=== PATIENT | female | born 2000 | race Caucasian/White ===

== ENCOUNTER 2022-01-04 09:29 | Outpatient (REF) | payer OTHER, SELFPAY ==
[2022-01-04 11:09] LABS: Hematocrit 37.5 % (37.0-47.0); Mean Corpuscular Hemoglobin 24.9 pg (27.0-33.0); Mean Platelet Volume 11.9 fL (9.4-12.3); Platelet Count 198 X10*3/uL (160-400); Red Blood Count 4.81 X10*6/uL (4.20-5.50); Red Cell Distribution Width 13.7 % (11.0-16.0); White Blood Count 4.8 X10*3/uL (4.8-10.8)
[2022-01-04 11:40] LABS: Alanine Aminotransferase 11 U/L (0-31); Albumin Level 4.4 g/dL (3.5-5.0); Alkaline Phosphatase 87 U/L (39-117); Anion Gap 16 (12-20); Aspartate Amino Transferase 17 U/L (5-31); Bilirubin Total 0.7 mg/dL (0.0-1.0); Blood Urea Nitrogen 10 mg/dL (9-16); Calcium 9.3 mg/dL (8.4-10.2); Carbon Dioxide 24 mmol/L (22-29); Chloride 102 mmol/L (96-108); Cholesterol 117 mg/dL; Estimated Glomerular Filt Rate > 60; Glucose Random 80 mg/dL (60-115); HDL Cholesterol 65 mg/dL; LDL Cholesterol Calculated 46 mg/dl; Potassium 4.1 mmol/L (3.3-5.1); Sodium 138 mmol/L (135-145); Total Protein 7.4 g/dL (6.5-8.0); Triglycerides 34 mg/dL
[2022-01-04 12:04] LABS: TSH reflex Free T4 1.11 uIU/mL (0.32-4.0)
== END 2022-01-04 09:30 | disposition home or self-care (01) ==
LOC: HO.WFDLDS 09:29
PROVIDERS: Visit Provider Hospitalist
DX: Z00.00 Encounter for general adult medical examination without abnormal findings (principal)
CPT/HCPCS: 36415; 80053; 80061; 84443; 85027

== ENCOUNTER 2022-07-10 13:25 | Outpatient (REF) | payer OTHER, SELFPAY ==
[2022-07-10 14:10] LABS: Hematocrit 37.6 % (37.0-47.0); Hemoglobin 11.6 g/dl (12.0-16.0); Mean Corpuscular HGB Conc 30.9 g/dl (31.0-35.0); Mean Corpuscular Hemoglobin 23.9 pg (27.0-33.0); Mean Corpuscular Volume 77.4 fL (80.0-98.0); Mean Platelet Volume 12.2 fL (9.4-12.3); Platelet Count 195 X10*3/uL (160-400); Red Blood Count 4.86 X10*6/uL (4.20-5.50); Red Cell Distribution Width 14.4 % (11.0-16.0); White Blood Count 5.8 X10*3/uL (4.8-10.8)
[2022-07-10 15:06] LABS: Cholesterol 119 mg/dL; HDL Cholesterol 58 mg/dL; Iron 32 mcg/dL (30-160); LDL Cholesterol Calculated 47 mg/dl; Percent Iron Saturation 7 % (15-50); Total Iron Binding Capacity 445 mcg/dL (228-428); Triglycerides 73 mg/dL; Unsaturated Iron Binding 413 ug/dL
[2022-07-10 15:08] LABS: TSH reflex Free T4 1.38 uIU/mL (0.32-4.0)
[2022-07-11 15:29] LABS: Ferritin 6 ng/mL (10-122); HCG Quantitative < 2 mIU/mL
== END 2022-07-10 13:26 | disposition home or self-care (01) ==
LOC: HO.HMGCLDS 13:25
PROVIDERS: PCP Hospitalist; Visit Provider Nurse Practitioner Family
DX: R53.83 Other fatigue (principal)
CPT/HCPCS: 36415; 80061; 82306; 82728; 83540; 84443; 84702; 85027

== ENCOUNTER 2022-10-31 13:51 | Outpatient (AMB) | payer OTHER, SELFPAY ==
[2022-10-31 13:59] VITALS: BP 100/64; PULSE 79; RESP 14; TEMP 36.6; O2SAT 98; BMI 30.2
--- NOTE | 2022-10-31 13:59 | A.OFFPC_ITS ---
Vital Signs 10/31/22 13:59 Height 5 ft 6 in Weight 187 lb BMI 30.2 BP 100/64 Blood Pressure Location Rt brachial Position Sitting Respiration 14 Pulse 79 Pulse Source Pulse Oximeter Temp 97.8 F Temp Source Temporal Artery Scan Pulse Oximetry (%) 98 Oxygen Delivery Method Room Air Intake Visit Reasons: Weight gain, late on menstrual Intake Note: Patient presents with concerns for late menstrual period, negative at home tests, and trouble losing weight. Patient reports a constant state of feeling tired with lack of energy. Radio Division Captain Required: No Accompanied by: Son Allergies diphenhydramine [From Benadryl] Allergy (Severe, Verified 10/31/22 14:19) Swelling Medication List - Last Reconciled 10/31/22 by Madiha Cifuentes CNP cholecalciferol (vitamin D3) 1,250 mcg PO QWEEK 8 weeks ferrous sulfate 325 mg PO DAILY 30 days ondansetron 4 mg PO Q8H PRN Tobacco use date assessed: 10/31/22 Dental Screening Dental Screen Date: 10/31/22 Did you have a dental visit in the last 12 months?: Yes Did you have a dental problem in the last 6 months where you did not have access to dental care?: No Was dental information given to patient?: Patient has dentist HPI HPI Comments History of Present Illness Details 22-year-old female presents with concerns of late menstrual cycle. She notes she has negative home test. She states her menstrual cycle has been late for the past 12 days. She reports difficulty losing weight although she exercises routinely. She also reports continued fatigue and lack of energy and intermittent generalized abdominal pain. She was evaluated for intermittent generalized abdominal pain, low energy, and nausea at her last visit. She states the nausea has resolved. She was diagnosed with iron deficiency anemia and vitamin-D deficiency. She was prescribed ferrous sulfate and vitamin D3 which she notes she has been taking as prescribed. However, she states she has remaining vitamin D3. She denies changes in bowel habits. She is not followed by gynecology. [facility] Medical History Anemia Anxiety Eczema Surgical History History of surgical procedure on eye proper using laser Family History Mother Cervical cancer No family history of mental disorder Anxiety Social History Household Members: Spouse Housing: House Alcohol intake: never Patient Tobacco Use Status: Never used Tobacco e-Cigarette/Vaping Use: Never Used Current occupational status: employed Cognitive needs: No Hearing needs: No Vision needs: No Questionnaire Thrive Questionnaire Date Thrive assessed: 04/23/22 ELVA-7 AMB Questionnaire ELVA-7 Date ELVA - 7 assessed: 04/23/22 Source: Developed by Drs. Matthias Yates, María Elena Ramos, Jase Gonsalez and colleagues, with an educational coleen from [employer]. Review of Systems Const Details: Const Denies chills, Reports fatigue, Denies fever(s), Denies headache(s) and Denies weakness ENT Denies dizziness and Denies headache(s) Card Denies chest pain, Denies lightheadedness, Denies dyspnea and Denies other (Palpitations) Resp Denies cough, Denies dyspnea, Denies wheezing and Denies other ( shortness of breath) GI Reports abdominal pain, Denies melena, Denies hematochezia, Denies change in bowel habits, Denies dyspepsia and Denies nausea Denies hematuria and Denies dysuria Musc Denies abnormal gait, Denies myalgias, Denies arthralgias, Denies numbness and Denies tingling Skin/Breast Denies rash, Denies unusual bruising and Denies wounds Neuro Denies abnormal gait, Denies dizziness, Denies headache(s), Denies memory loss, Denies numbness, Denies Sensory deficit (Neuro), Denies tingling and Denies weakness Psych Denies anxiety, Denies depression, Denies memory loss Endo Denies cold intolerance, Reports fatigue, Denies heat intolerance, Denies flora ydipsia and Denies polyuria Aller/Immun Denies wheezing Physical exam (Primary Care) Vital Signs: Last Vital Signs Temp 97.8 F 10/31/22 13:59 Pulse 79 10/31/22 13:59 Resp 14 10/31/22 13:59 BP 100/64 10/31/22 13:59 Pulse Ox 98 10/31/22 13:59 Oxygen Delivery Method Room Air 10/31/22 13:59 BMI result Body Mass Index 30.2 Tobacco/Smoking Status: Tobacco use Status Tobacco use date assessed 10/31/22 10/31/22 14:12 Patient Tobacco Use Status Never used Tobacco 10/31/22 13:59 e-Cigarette/Vaping Use Never Used 10/31/22 13:59 Thrive Assessment: Date of Thrive Assessment Date Thrive assessed 04/23/22 10/31/22 13:59 Const Other: General: no acute distress and well developed Nutritional Appearance: well nourished Orientation/consciousness: patient oriented x3 HENMT Head: Yes normocephalic and Yes atraumatic Eyes General: appearance normal, both eyes and all related structures Pupils: Equal, round and reactive pupils present EOM: EOMs intact bilaterally Resp Effort & Inspection: normal respiratory effort Auscultation: clear to auscultation bilaterally Cardio Rate: regular rate Rhythm: regular rhythm Heart sounds: S1 normal heart sound present, S2 normal heart sound present, no gallops, no murmurs and no rubs GI Palpation (GI): No Abdominal aortic bruit present, Soft to palpation, tender suprapubic region, No hepatosplenomegaly present and No Rebound tenderness present Auscultation: normal bowel sounds General: Yes no CVA tenderness Back/Spine/Pelvis Back: no CVA tenderness Cervical Spine: cervical ROM normal and No Cervical spine tenderness Thoracic/Lumbar Spine: thoraco-lumbar ROM normal, No pain with thoraco-lumbar ROM, No thoracic spinal tenderness and No lumbar spinal tenderness Extrem General: Yes normal to inspection, No edema and No calf tenderness Skin General: warm and dry. Normal skin color. Normal skin turgor Lesions: no lesions Rashes: no rashes Trauma: no lacerations or abrasions Wounds: no wounds Nails: normal Neuro General: patient oriented x3, gait normal and no focal neuro deficit Cranial nerves: Yes Equal, round and reactive pupils present Cognition (Neuro): normal cognition Gait exam (Neuro): Normal gait present Sensory Exam: No Sensory deficit (Neuro) Psych Appearance: grossly normal Affect: normal affect Attitude: cooperative Thought process: Normal thought process present Assessment and Plan Assessment & Plan (1) Low energy: Code(s): R53.83 - Other fatigue Plan: She reports lack of energy and fatigue Likely due to iron deficiency anemia and vitamin-D deficiency She admits to taking her medications as prescribed. However, she notes she still have some remaining vitamin D3. Vitamin D3 was ordered for 8 weeks and should have been completed. Medication compliance encouraged Labs ordered. Will review results and make changes to her care plan if warranted Follow-up or go to the ED with worsening or new symptoms Verbalized understanding and agreed with the treatment plan. (2) Abdominal pain: Code(s): R10.9 - Unspecified abdominal pain Qualifiers: Abdominal location: generalized Qualified Code(s): R10.84 - Generalized abdominal pain Plan: Reports continued intermittent abdominal pain Suprapubic tenderness to palpation Labs and urinalysis ordered May take Tylenol ibuprofen for pain or discomfort rail transit operator referral made to [facility] [place]-up or go to the ED with worsening or new symptoms Verbalized understanding and agreed with treatment plan. (3) Irregular menstruation: Code(s): N92.6 - Irregular menstruation, unspecified Plan: She states her menstrual cycle has been late for the past 12 days. She has had multiple negative home test. Labs, including HCG quantitative test ordered Referred to pellet mill operator Follow-up or go to the ED with new or worsening symptoms Verbalized understanding and agreed with the plan. (4) Obesity (BMI 30.0-34.9): Code(s): E66.9 - Obesity, unspecified Plan: She reports difficulty losing weight although she exercises routinely. She lost 25 lbs since her last visit. Her BMI is 30.2 from 34.2. Healthy diet and routine exercise encouraged Follow-up with concerns Verbalized understanding and agreed with the plan. Orders: Orders Vitamin D 25-OH Total Today R53.83 - Other fatigue Complete Blood Count Auto Diff Today N92.6 - Irregular menstruation, unspecified, R10.9 - Unspecified abdominal pain, R53.83 - Other fatigue HCG Quantitative Today N92.6 - Irregular menstruation, unspecified Comprehensive Met. Panel Today N92.6 - Irregular menstruation, unspecified, R10.9 - Unspecified abdominal pain, R53.83 - Other fatigue Ferritin Today R53.83 - Other fatigue IRON PROFILE Today R53.83 - Other fatigue UA CC w/rflx Micro + Cult Today R10.9 - Unspecified abdominal pain Referrals MECHANICAL ENGINEERING OFFICER Referral N92.6 - Irregular menstruation, unspecified, R10.9 - Unspecified abdominal pain Coding Level of Care Code Tele Est Pt Level 4 (28838) Diagnoses Low energy R53.83 Abdominal pain R10.84 Abdominal location: generalized Irregular menstruation N92.6 Obesity (BMI 30.0-34.9) E66.9 Time Spent (min) 35
== END 2022-10-31 14:41 | disposition home or self-care (01) ==
PROVIDERS: PCP Hospitalist; Visit Provider Nurse Practitioner Family
DX: R53.83 Other fatigue (principal); Z68.30 Body mass index [BMI] 30.0-30.9, adult; E66.9 Obesity, unspecified; R10.84 Generalized abdominal pain; N92.6 Irregular menstruation, unspecified
CPT/HCPCS: 99214

== ENCOUNTER 2023-06-18 09:39 | Outpatient (AMB) | payer OTHER, SELFPAY ==
--- NOTE | 2023-06-18 09:42 | MHC.PC.OV ---
Vital Signs 06/18/23 09:54 Height 5 ft 6 in Weight 227 lb 6 oz BMI 36.7 BP 125/76 Blood Pressure Location Rt brachial Position Sitting Respiration 14 Pulse 69 Pulse Source Pulse Oximeter Temp 97.9 F Temp Source Temporal Artery Scan Pulse Oximetry (%) 98 Oxygen Delivery Method Room Air Intake Visit Reasons: DEAN from [facility] Intake Note: Chest pain and weight gain Is last menstrual period known: Yes Allergies diphenhydramine [From Benadryl] Allergy (Severe, Verified 06/18/23 10:02) Swelling Medication List - Last Reconciled 06/18/23 by Alison Lin, MUSIC SUPERVISOR- clindamycin phosphate 1% 1 appl topical BEDTIME spironolactone 25 mg PO DAILY Tobacco use date assessed: 06/18/23 Dental Screening Dental Screen Date: 06/18/23 Did you have a dental visit in the last 12 months?: Yes Did you have a dental problem in the last 6 months where you did not have access to dental care?: No Was dental information given to patient?: Patient has dentist HPI HPI Comments History of Present Illness Details 22-year-old female with anxiety, anemia, eczema, obesity Family history Health maintenance Vaccines declined flu, likely up to date 2020 Pap smear [facility] Wants to talk about her weight. Has been able to lose weight prior to have her son. Having chest pain which she relates to anxiety. Occurs when she is overwhelmed. Not currently active w counselor. Was on vistaril in the past; made her tired; used mainly at HS with + effect. c/o chronic neck pain from playing bball. PT in past + effect, would like new referral [facility] Medical History Anemia Anxiety Eczema Surgical History History of surgical procedure on eye proper using laser Family History Mother Cervical cancer No family history of mental disorder Anxiety Social History (Updated 06/18/23 @ 09:53 by Rita Montoya CMA) Household Members: Spouse Housing: House Alcohol intake: never Patient Tobacco Use Status: Never used Tobacco e-Cigarette/Vaping Use: Never Used Use of substances other than those prescribed or required for medical reasons: No Current occupational status: employed Cognitive needs: No Hearing needs: No Vision needs: No Questionnaire PHQ-9 Over the last 2 weeks, how often have you been bothered by any of the following problems? 1. Little interest or pleasure in doing things: not at all 2. Feeling down, depressed, or hopeless: several days 3. Trouble falling or staying asleep, or sleeping too much: more than half the days 4. Feeling tired or having little energy: nearly every day 5. Poor appetite or overeating: not at all 6. Feeling bad about yourself - or that you are a failure or have let yourself or your family down: not at all 7. Trouble concentrating on things, such as reading the newspaper or watching television: not at all 8. Moving or speaking so slowly that other people could have noticed. Or the opposite - being so fidgety or restless that you have been moving around a lot more than usual: not at all 9. Thoughts that you would be better off or of hurting yourself in some way: not at all Total score: 6 Depression Screening Interpretation: Positive Depression Screening Follow-up: Existing condition and Community Mental Health Worker F/U Depression Screening Done: Yes 76434 - PHQ-9 Billing: Yes Source: Developed by Drs. Matthias Yates, María Elena Ramos, Jase Gonsalez and colleagues, with an educational coleen from [employer]. Thrive Questionnaire Date Thrive assessed: 04/23/22 I am a: Patient What is your living situation today?: I have a steady place to live Within the past 12 months, did the food you bought not last and you didn't have the money to get more?: Never true Within the past 12 months, did you worry whether your food would run out before you got money to buy more?: Never true Do you have trouble paying for medicines?: No Do you have trouble getting transportation to medical appointments?: No Do you have trouble paying your heating and electricity bill?: No Do you have trouble with day-to-day activities such as bathing, preparing meals, shopping, managing finances, etc.?: No Are you currently unemployed and looking for a job?: No Are you interested in more education?: No Please select the resources that you would like help with: Childcare Currently or been in a relationship where the following occur: no concerns reported THRIVE Score: 0 AUDIT C Alcohol Use Questionnaire (AUDIT-C) 1. How often do you have a drink containing alcohol?: 2-4 times a month 2. How many drinks containing alcohol do you have on a typical day when you are drinking?: 1 or 2 3. How often do you have six or more drinks on one occasion?: Never Total Score: 2 Score Reviewed/Action Taken: Yes ELVA-7 AMB Questionnaire ELVA-7 Date ELVA - 7 assessed: 04/23/22 Feeling nervous, anxious, or on edge: 0 = Not at all Not being able to stop or control worryin = Not at all Worrying too much about different things: 1 = Several days Trouble relaxin = Several days Being so restless that it is hard to sit still: 0 = Not at all Becoming easily annoyed or irritable: 1 = Several days Feeling afraid as if something awful might happen: 0 = Not at all Total ELVA-7 score (0-4 normal; 5-9 mild; 10-14 moderate; 15-21 severe): 3 Source: Developed by Drs. Matthias Yates, María Elena Ramos, Jase Gonsalez and colleagues, with an educational coleen from [employer]. ELVA-7 Assessment Billing ELVA-7 Assessment Tool: ELVA-7 Assessment 71418 Review of Systems Const All systems reviewed & are unremarkable except as noted in HPI and below Physical exam (Primary Care) Vital Signs: Last Vital Signs Temp 97.9 F 06/18/23 09:54 Pulse 69 06/18/23 09:54 Resp 14 06/18/23 09:54 BP 125/76 06/18/23 09:54 Pulse Ox 98 06/18/23 09:54 Oxygen Delivery Method Room Air 06/18/23 09:54 BMI result Body Mass Index 36.7 Tobacco/Smoking Status: Tobacco use Status Tobacco use date assessed 06/18/23 06/18/23 09:46 Patient Tobacco Use Status Never used Tobacco 06/18/23 09:53 e-Cigarette/Vaping Use Never Used 06/18/23 09:53 PHQ-9: PHQ-9 Score PHQ-9: Total score 6 06/18/23 09:51 Depression Screening Interpretation: Positive Depression Screening Follow-up: Existing condition and Community Mental Health Worker F/U Thrive Assessment: Date of Thrive Assessment Date Thrive assessed 04/23/22 06/18/23 09:46 Currently or been in a relationship where the following occur: no concerns reported Const Other: awake alert NAD accompanied by 2 y/o son Tommy Wearing glasses RRR LS CTAB Mood and affect appropriate Assessment and Plan Assessment & Plan (1) Severe obesity (BMI 35.0-39.9) with comorbidity: Code(s): E66.01 - Morbid (severe) obesity due to excess calories (2) ELVA (generalized anxiety disorder): Code(s): F41.1 - Generalized anxiety disorder (3) Vitamin D deficiency: Code(s): E55.9 - Vitamin D deficiency, unspecified (4) Neck pain: Comment: refer to PT Code(s): M54.2 - Cervicalgia Plan check labs and RTO next week to discuss findings discuss starting meds to help w/ wt loss and anxiety >> rec Wellbutrin as long as labs WNL Total time spent caring for the patient today was 50 minutes. This includes time spent before the visit reviewing the chart, time spent during the visit, and time spent after the visit on documentation This note is constructed using voice recognition software. While every effort has been made to ensure accuracy in electric motors salesperson, still errors may have been included Sometimes, these errors may affect the content or meaning of the given sentence . Orders: Orders Comprehensive [place]. Panel Fast Today E55.9 - Vitamin D deficiency, unspecified, E66.01 - Morbid (severe) obesity due to excess calories, F41.1 - Generalized anxiety disorder TSH reflex Free T4 Today E55.9 - Vitamin D deficiency, unspecified, E66.01 - Morbid (severe) obesity due to excess calories, F41.1 - Generalized anxiety disorder Lipid Panel Today E55.9 - Vitamin D deficiency, unspecified, E66.01 - Morbid (severe) obesity due to excess calories, F41.1 - Generalized anxiety disorder Complete Blood Count no Diff Today E55.9 - Vitamin D deficiency, unspecified, E66.01 - Morbid (severe) obesity due to excess calories, F41.1 - Generalized anxiety disorder Vitamin B12 and Folate Today E55.9 - Vitamin D deficiency, unspecified, E66.01 - Morbid (severe) obesity due to excess calories, F41.1 - Generalized anxiety disorder PT Evaluation and Treatment Today M54.2 - Cervicalgia Microalbumin, Random (w Creat) Today E55.9 - Vitamin D deficiency, unspecified, E66.01 - Morbid (severe) obesity due to excess calories, F41.1 - Generalized anxiety disorder IRON PROFILE Today E55.9 - Vitamin D deficiency, unspecified, E66.01 - Morbid (severe) obesity due to excess calories, F41.1 - Generalized anxiety disorder Referrals Counseling Referral F41.1 - Generalized anxiety disorder Review Flu Vaccine not done: patient reason Coding Level of Care Code Est Pt Level 5 (84754) Diagnoses Severe obesity (BMI 35.0-39.9) with comorbidity E66.01 ELVA (generalized anxiety disorder) F41.1 Vitamin D deficiency E55.9 Neck pain M54.2 Additional Codes ELVA-7 Assessment Billing - ELVA-7 Assessment Tool: ELVA-7 Assessment [id number] ([id number])
[2023-06-18 09:54] VITALS: BP 125/76; PULSE 69; RESP 14; TEMP 36.6; O2SAT 98; BMI 36.7
== END 2023-06-18 11:17 | disposition home or self-care (01) ==
PROVIDERS: PCP Hospitalist; Visit Provider Nurse Practitioner Family
DX: M54.2 Cervicalgia (principal); E66.01 Morbid (severe) obesity due to excess calories; Z68.36 Body mass index [BMI] 36.0-36.9, adult; F41.1 Generalized anxiety disorder; E55.9 Vitamin D deficiency, unspecified
CPT/HCPCS: 99215

== ENCOUNTER 2023-06-18 10:23 | Outpatient (REF) | payer OTHER, SELFPAY ==
[2023-06-18 12:07] LABS: MANUAL DIFF FLAG NO
[2023-06-18 12:14] LABS: Basophils Percent Auto 0.6 % (0-2); Eosinophils Absolute Auto 0.2 X10*3/uL (0.0-0.4); Eosinophils Percent Auto 4.3 % (0-4); Hematocrit 39.9 % (37.0-47.0); Hemoglobin 12.4 g/dl (12.0-16.0); Imm Gran Abs Auto 0.02 X10*3/uL (0.00-0.03); Imm Gran Pct Auto 0.4 % (0.0-0.4); Lymphocytes Absolute Auto 1.3 X10*3/uL (1.2-4.9); Lymphocytes Percent Auto 25.4 % (20-40); Mean Corpuscular HGB Conc 31.1 g/dl (31.0-35.0); Mean Corpuscular Hemoglobin 24.9 pg (27.0-33.0); Mean Corpuscular Volume 80.1 fL (80.0-98.0); Mean Platelet Volume 12.4 fL (9.4-12.3); Monocytes Absolute Auto 0.3 X10*3/uL (0.1-1.2); Monocytes Percent Auto 6.5 % (2-11); Neutrophils Absolute Auto 3.1 x10*3/uL (2.0-8.3); Neutrophils Percent Auto 62.8 % (45-73); Platelet Count 222 X10*3/uL (160-400); Red Blood Count 4.98 X10*6/uL (4.20-5.50); Red Cell Distribution Width 13.2 % (11.0-16.0); White Blood Count 4.9 X10*3/uL (4.8-10.8)
[2023-06-18 12:14] LABS: Appearance Urine Clear; Color Urine Yellow; Glucose Urine UA Negative (Negative); Leukocyte Esterase Urine Negative (Negative); Nitrite Urine Negative (Negative); Specific Gravity - Urine 1.025 (1.005-1.025); UMIC TRIGGER UACC YES; Urine Blood Moderate (2+) (Negative); Urine Ketones Negative (Negative); Urine Protein Negative (Neg-Trace)
[2023-06-18 12:36] LABS: Bacteria Urine Trace (None Seen); Hyaline Casts Urine 0-2 /LPF (0-2); RBC Urine 0-2 /HPF (0-2); WBC Urine 0-5 /HPF (0-5)
[2023-06-18 12:57] LABS: Alanine Aminotransferase 14 U/L (0-31); Albumin Level 4.1 g/dL (3.5-5.0); Alkaline Phosphatase 94 U/L (39-117); Anion Gap 12 (12-20); Aspartate Amino Transferase 15 U/L (5-31); Bilirubin Total 0.4 mg/dL (0.0-1.0); Blood Urea Nitrogen 14 mg/dL (9-16); Calcium 9.2 mg/dL (8.4-10.2); Carbon Dioxide 26 mmol/L (22-29); Chloride 106 mmol/L (96-108); Cholesterol 116 mg/dL (<200); Estimated Glomerular Filt Rate > 60; Glucose Random 105 mg/dL (60-115); HDL Cholesterol 67 mg/dL (>40); Iron 47 mcg/dL (30-160); LDL Cholesterol Calculated 41 mg/dL (<100); Percent Iron Saturation 11 % (15-50); Potassium 4.1 mmol/L (3.3-5.1); Sodium 140 mmol/L (135-145); Total Iron Binding Capacity 417 mcg/dL (228-428); Total Protein 7.5 g/dL (6.5-8.0); Triglycerides 44 mg/dL (<150); Unsaturated Iron Binding 370 ug/dL
[2023-06-18 13:18] LABS: Ferritin 9 ng/mL (10-122); HCG Quantitative < 2 mIU/mL; Vitamin D 25-OH Total 20.6 ng/mL (>30)
[2023-06-18 20:08] LABS: Creatinine Urine 130.93 mg/dL; Microalbum/Creatinine Ratio Ur 7.6 ug/mg cr (<30)
[2023-06-18 20:29] LABS: TSH reflex Free T4 1.06 uIU/mL (0.32-4.0)
== END 2023-06-18 10:24 | disposition home or self-care (01) ==
LOC: HO.WFDLDS 10:23
PROVIDERS: Visit Provider Nurse Practitioner Family
DX: R10.84 Generalized abdominal pain (principal); R53.83 Other fatigue; D50.9 Iron deficiency anemia, unspecified; F41.1 Generalized anxiety disorder; E55.9 Vitamin D deficiency, unspecified; E66.01 Morbid (severe) obesity due to excess calories
CPT/HCPCS: 36415; 80053; 80061; 81001; 81003; 82043; 82306; 82570; 82728; 83540; 84443; 84702; 85025; 85027

== ENCOUNTER 2023-06-28 09:54 | Outpatient (AMB) | payer OTHER, SELFPAY ==
--- NOTE | 2023-06-28 09:57 | A.OFFPC_ITS ---
Intake Visit Reasons: 1 week follow up Allergies diphenhydramine [From Benadryl] Allergy (Severe, Verified 06/18/23 10:02) Swelling Tobacco use date assessed: 06/18/23 Dental Screening Dental Screen Date: 06/18/23 HPI HPI Comments History of Present Illness Details 22-year-old female with iron def anxiety , anemia, eczema, obesity, Vit D Def, Family history Health maintenance Vaccines declined flu, likely up to date 2020 Pap smear [facility] Last from 06/18/2023 show microcytic anemia, iron 11, ferritin 9, unsaturated iron binding 370, normal CMP, normal lipid panel, low vitamin-D 20.6, normal TSH, normal urine , normal UA, normal urine microalbumin creatinine PFSH Medical History Anemia Anxiety Eczema Surgical History History of surgical procedure on eye proper using laser Family History Mother Cervical cancer No family history of mental disorder Anxiety Social History (Updated 06/18/23 @ 09:53 by Rita Montoya [facility]) Household Members: Spouse Housing: House Alcohol intake: never Patient Tobacco Use Status: Never used Tobacco e-Cigarette/Vaping Use: Never Used Current occupational status: employed Cognitive needs: No Hearing needs: No Vision needs: No Questionnaire Thrive Questionnaire Date Thrive assessed: 04/23/22 ELVA-7 AMB Questionnaire ELVA-7 Date ELVA - 7 assessed: 04/23/22 Source: Developed by Drs. Matthias Yates, María Elena Ramos, Jase Gonsalez and colleagues, with an educational coleen from [employer]. Review of Systems Const Reports as per HPI Physical exam (Primary Care) Tobacco/Smoking Status: Tobacco use Status Tobacco use date assessed 06/18/23 06/18/23 09:46 Patient Tobacco Use Status Never used Tobacco 06/18/23 09:53 e-Cigarette/Vaping Use Never Used 06/18/23 09:53 Thrive Assessment: Date of Thrive Assessment Date Thrive assessed 04/23/22 06/18/23 09:46 Const Other: awake alert NAD accompanied by 2 y/o son Isaih Wearing glasses RRR LS CTAB Mood and affect appropriate Assessment and Plan Assessment & Plan (1) ELVA (generalized anxiety disorder): Code(s): F41.1 - Generalized anxiety disorder (2) Severe obesity (BMI 35.0-39.9) with comorbidity: Code(s): E66.01 - Morbid (severe) obesity due to excess calories (3) Vitamin D deficiency: Code(s): E55.9 - Vitamin D deficiency, unspecified (4) Iron deficiency anemia: Code(s): D50.9 - Iron deficiency anemia, unspecified Coding Diagnoses ELVA (generalized anxiety disorder) F41.1 Severe obesity (BMI 35.0-39.9) with comorbidity E66.01 Vitamin D deficiency E55.9 Iron deficiency anemia D50.9
--- NOTE | 2023-06-28 10:01 | A.OFFPC_ITS ---
Vital Signs 06/28/23 10:05 Height 5 ft 6 in BMI Reason not done Patient refused/unable BP 124/63 Blood Pressure Location Lt brachial Position Sitting Respiration 16 Pulse 93 Pulse Source Pulse Oximeter Temp 97.7 F Temp Source Temporal Artery Scan Pulse Oximetry (%) 97 Oxygen Delivery Method Room Air Intake Visit Reasons: 1 week follow up Intake Note: One week follow up Short Story Writer Required: No Allergies diphenhydramine [From Benadryl] Allergy (Severe, Verified 06/28/23 10:12) Swelling Medication List - Last Reconciled 06/28/23 by Alison Lin, GLASS DEPOSITION TENDER- clindamycin phosphate 1% 1 appl topical BEDTIME spironolactone 25 mg PO DAILY Tobacco use date assessed: 06/28/23 Dental Screening Dental Screen Date: 06/28/23 HPI HPI Comments History of Present Illness Details 22-year-old female with iron def anxiety , anemia, eczema, obesity, Vit D Def, Family history Health maintenance Vaccines declined flu, likely up to date 2020 [facility] Here today to fu on labs, ELVA and obesity Last from 06/18/2023 show microcytic anemia, iron 11, ferritin 9, unsaturated iron binding 370, normal CMP, normal lipid panel, low vitamin-D 20.6, normal TSH, normal urine , normal UA, normal urine microalbumin creatinine Has taken Iron in the past w/o side effects. [facility] Medical History Anemia Anxiety Eczema Surgical History History of surgical procedure on eye proper using laser Family History Mother Cervical cancer No family history of mental disorder Anxiety Social History (Updated 06/18/23 @ 09:53 by Rita Montoya CMA) Household Members: Spouse Housing: House Alcohol intake: never Patient Tobacco Use Status: Never used Tobacco e-Cigarette/Vaping Use: Never Used Current occupational status: employed Cognitive needs: No Hearing needs: No Vision needs: No Questionnaire Thrive Questionnaire Date Thrive assessed: 04/23/22 ELVA-7 AMB Questionnaire ELVA-7 Date ELVA - 7 assessed: 04/23/22 Source: Developed by Drs. Matthias Yates, María Elena Ramos, Jase Gonsalez and colleagues, with an educational coleen from [employer]. Physical exam (Primary Care) Vital Signs: Last Vital Signs Temp 97.7 F 06/28/23 10:05 Pulse 93 06/28/23 10:05 Resp 16 06/28/23 10:05 BP 124/63 06/28/23 10:05 Pulse Ox 97 06/28/23 10:05 Oxygen Delivery Method Room Air 06/28/23 10:05 BMI Assessment/Plan discussion: High BMI High, discussed plan: other Tobacco/Smoking Status: Tobacco use Status Tobacco use date assessed 06/28/23 06/28/23 10:08 Patient Tobacco Use Status Never used Tobacco 06/28/23 10:08 e-Cigarette/Vaping Use Never Used 06/28/23 10:08 Thrive Assessment: Date of Thrive Assessment Date Thrive assessed 04/23/22 06/28/23 10:08 Const Other: awake alert NAD accompanied by 2 y/o son Tommy Wearing glasses RRR LS CTAB Mood and affect appropriate Assessment and Plan Assessment & Plan (1) ELVA (generalized anxiety disorder): Comment: Start Wellbutrin XL 150 mg p.o. daily return to office in 6 weeks to follow up on effects Code(s): F41.1 - Generalized anxiety disorder (2) Severe obesity (BMI 35.0-39.9) with comorbidity: Comment: Start Wellbutrin XL 150 mg daily. Advised to weigh self at home tomorrow in a fasting state. Follow up in 6 weeks. Advised that she needs to weigh herself on the day of the phone visit in 6 weeks that we can compare the 2 weights. We will titrate the medication to effect. Code(s): E66.01 - Morbid (severe) obesity due to excess calories (3) Vitamin D deficiency: Comment: Start vitamin-D 3 2000 IU daily. We will repeat labs in September. Code(s): E55.9 - Vitamin D deficiency, unspecified (4) Iron deficiency anemia: Comment: Start ferrous sulfate 325 mg 1 tab p.o. daily. Encouraged to take with 4 oz of citrus juice. If she can not tolerate it due to use okay to add vitamin-C 250 mg to be taken at the same time as the iron tablet. We will repeat labs in September. Code(s): D50.9 - Iron deficiency anemia, unspecified Plan This note is constructed using voice recognition software. While every effort has been made to ensure accuracy in racquet maker, still errors may have been included Sometimes, these errors may affect the content or meaning of the given sentence . Total time spent caring for the patient today was 30 minutes. This includes time spent before the visit reviewing the chart, time spent during the visit, and time spent after the visit on documentation Orders: Orders Complete Blood Count no Diff 09/16/23 D50.9 - Iron deficiency anemia, unspecified, E55.9 - Vitamin D deficiency, unspecified Vitamin D 1,25 dihydroxy 09/16/23 D50.9 - Iron deficiency anemia, unspecified, E55.9 - Vitamin D deficiency, unspecified IRON PROFILE 09/16/23 D50.9 - Iron deficiency anemia, unspecified, E55.9 - Vitamin D deficiency, unspecified Medications: New ferrous sulfate 324 mg PO DAILY 90 tabs 1RF bupropion HCl XL (Wellbutrin XL) 150 mg PO QAM 30 tabs 1RF cholecalciferol (vitamin D3) 50 mcg PO DAILY 90 caps 1RF Coding Level of Care Code Est Pt Level 4 (22273) Diagnoses ELVA (generalized anxiety disorder) F41.1 Severe obesity (BMI 35.0-39.9) with comorbidity E66.01 Vitamin D deficiency E55.9 Iron deficiency anemia D50.9
[2023-06-28 10:05] VITALS: BP 124/63; PULSE 93; RESP 16; TEMP 36.5; O2SAT 97
== END 2023-06-28 10:41 | disposition home or self-care (01) ==
PROVIDERS: PCP Hospitalist; Visit Provider Nurse Practitioner Family
DX: D50.9 Iron deficiency anemia, unspecified (principal); E66.01 Morbid (severe) obesity due to excess calories; F41.1 Generalized anxiety disorder; E55.9 Vitamin D deficiency, unspecified
CPT/HCPCS: 99214

== ENCOUNTER 2023-07-19 15:54 | Outpatient (AMB) | payer OTHER, SELFPAY ==
--- NOTE | 2023-07-19 15:35 | A.OFFPC_ITS ---
Intake Visit Reasons: medication causing side effects Intake Note: Patient reports the Buproprion HCI XL- patient is experiencing increased depression, suicidal thoughts, etc. Patient reports she is safe. Mechanical Car Checker Required: No Accompanied by: Self / Same As Patient Allergies diphenhydramine [From Benadryl] Allergy (Severe, Verified 07/19/23 15:59) Swelling bupropion Adverse Reaction (Severe, Verified 07/19/23 15:59) Depression Medication List - Last Reconciled 07/19/23 by Alison Lin [facility] cholecalciferol (vitamin D3) 50 mcg PO DAILY clindamycin phosphate 1% 1 appl topical BEDTIME ferrous sulfate 324 mg PO DAILY spironolactone 25 mg PO DAILY Tobacco use date assessed: 06/28/23 Dental Screening Dental Screen Date: 06/28/23 HPI HPI Comments History of Present Illness Details Telehealth visit today: She reports that after starting Wellbutrin, she felt terrible. States she felt like she had bipolar as she was having mood swings. Feeling really down, bad thoughts here and there. She reports that this started after taking for 2 weeks. She did not stopped taking the medication as she was hoping that this would help her to lose weight. She denies SI, HI. She continues to be interested in medications that would help both her weight as well as her mood. [facility] Medical History Anemia Anxiety Eczema Surgical History History of surgical procedure on eye proper using laser Family History Mother Cervical cancer No family history of mental disorder Anxiety Social History (Updated 06/18/23 @ 09:53 by Rita Montoya CMA) Household Members: Spouse Housing: House Alcohol intake: never Patient Tobacco Use Status: Never used Tobacco e-Cigarette/Vaping Use: Never Used Current occupational status: employed Cognitive needs: No Hearing needs: No Vision needs: No Questionnaire Thrive Questionnaire Date Thrive assessed: 04/23/22 ELVA-7 AMB Questionnaire ELVA-7 Date ELVA - 7 assessed: 04/23/22 Source: Developed by Drs. Matthias Yates, María Elena B.Jase Everett and colleagues, with an educational coleen from [employer]. Physical exam (Primary Care) Tobacco/Smoking Status: Tobacco use Status Tobacco use date assessed 06/28/23 07/19/23 15:36 Patient Tobacco Use Status Never used Tobacco 07/19/23 15:36 e-Cigarette/Vaping Use Never Used 07/19/23 15:36 Thrive Assessment: Date of Thrive Assessment Date Thrive assessed 04/23/22 07/19/23 15:36 Telehealth Telehealth Telehealth Platform: Telephone Location of provider rendering services: practice address Location of patient: address on file Patient Identification confirmed using: Name, : Yes Telehealth method: voice only Patient verbally consented to treatment: Yes Patient verbally consented to billing insurance company: Yes Patient informed of any privacy concerns related to visit: Yes Minutes spent on Phone/Video with Pt.: 11 Assessment and Plan Assessment & Plan (1) ELVA (generalized anxiety disorder): Comment: Unfortunately she started with side effects after starting Wellbutrin. Side effects include mood swings and depressive mood. Advised to stop immediately and just throw the rest of the medication away. Start escitalopram 10 mg p.o. q.day. Code(s): F41.1 - Generalized anxiety disorder (2) Severe obesity (BMI 35.0-39.9) with comorbidity: Comment: Was not able to tolerate Wellbutrin as she had side effects. Advised to stop immediately. Start Rybelsus 1 tablet p.o. daily. Titrate to effect. Educated about side effects of GI upset. Advised to take 1st thing in the morning on an empty stomach with a sip of water. Nothing to eat or drink for 30 minutes after. Code(s): E66.01 - Morbid (severe) obesity due to excess calories Medications: New escitalopram oxalate 10 mg PO DAILY 30 tabs 1RF semaglutide (Rybelsus) 3 mg PO DAILY 30 days 30 tabs 1RF Patient Instructions: rto as scheduled, sooner if any changes Coding Level of Care Code Tele Est Pt Level 2 (48004) Diagnoses ELVA (generalized anxiety disorder) F41.1 Severe obesity (BMI 35.0-39.9) with comorbidity E66.01
== END 2023-07-19 16:09 | disposition home or self-care (01) ==
LOC: HO.HMGFM 15:54
PROVIDERS: PCP Hospitalist; Visit Provider Nurse Practitioner Family
DX: F41.1 Generalized anxiety disorder (principal); E66.01 Morbid (severe) obesity due to excess calories
CPT/HCPCS: 99212

== ENCOUNTER 2023-09-10 09:10 | Outpatient (AMB) | payer OTHER, SELFPAY ==
--- NOTE | 2023-09-10 09:12 | A.OFFPC_ITS ---
Vital Signs 09/10/23 09:20 Height 5 ft 6 in Weight 230 lb 2 oz BMI 37.1 BP 118/78 Blood Pressure Location Lt brachial Position Sitting Pulse 88 Pulse Source Pulse Oximeter Pulse Oximetry (%) 97 Oxygen Delivery Method Room Air Intake Visit Reasons: med visit Intake Note: patient here for diabetic medication follow up. Onshore Diver Required: No Accompanied by: Child Is last menstrual period known: Yes Last menstrual period: 09/07/23 Post menopausal: No Patient : No Allergies diphenhydramine [From Benadryl] Allergy (Severe, Verified 07/19/23 15:59) Swelling bupropion Adverse Reaction (Severe, Verified 07/19/23 15:59) Depression Tobacco use date assessed: 06/28/23 Dental Screening Dental Screen Date: 06/28/23 Did you have a dental visit in the last 12 months?: Yes Did you have a dental problem in the last 6 months where you did not have access to dental care?: No Was dental information given to patient?: Patient has dentist HPI HPI Comments History of Present Illness Details This is a 23-year-old female with a past medical history of anxiety, obesity, vitamin-D deficiency and iron deficiency anemia presenting for a medication review. This is my 1st time seeing the patient. She is accompanied by her 3-year-old son. Anxiety-she had an adverse reaction to bupropion previously. She was prescribed Lexapro 10 mg at her last visit, but she did not start taking it. She has concerns about weight gain with this type of medication. She thinks she still would benefit from anxiety medication. She is thinking about therapy, but she is not sure she can do it right now with her schedule. She denies depression. She feels like her anxiety is related to her difficulties with her weight, caring for her 3-year-old and working. Obesity-she was prescribed Rybelsus, but she never was able to pick it up from the pharmacy. She says the prior authorization was not done. She also wants to know if she can take 1 of the injectable medications instead. Her recent TSH iss normal. Patient says she has a history of exercise induced asthma. She likes to run and do endurance activities. She does not have an inhaler, but she used to have one. She endorses shortness of breath with vigorous exercise. This is also associated with a feeling of chest tightness and chest pain. She denies syncope or palpitations. She would like an inhaler prescribed. Upon further questioning she says she does get chest pain when she is not exercising. She says this occurs with anxiety. It is described as a mild to moderate tight or painful feeling in the middle of her chest. She is a nonsmoker. She has no family history of heart disease. [facility] Medical History (Updated 09/10/23 @ 09:46 by CATHY Gill) Exercise-induced asthma Eczema Anemia Anxiety Surgical History (Reviewed 10/31/22 @ 14:12 by Beverley Roberts [facility]) History of surgical procedure on eye proper using laser Family History Mother Cervical cancer No family history of mental disorder Anxiety Social History (Updated 06/18/23 @ 09:53 by Rita Montoya [facility]) Household Members: Spouse Housing: House Alcohol intake: never Patient Tobacco Use Status: Never used Tobacco e-Cigarette/Vaping Use: Never Used service: No Current occupational status: employed Current occupation: [employer] Current occupational exposures/hazards: No Cognitive needs: No Hearing needs: No Vision needs: No Female Reproductive History Menstrual Date of last menstrual period: 09/07/23 Questionnaire Thrive Questionnaire Date Thrive assessed: 04/23/22 ELVA-7 AMB Questionnaire ELVA-7 Date ELVA - 7 assessed: 04/23/22 Source: Developed by Drs. Matthias Yates, María Elena Ramos, Jase Gonsalez and colleagues, with an educational coleen from [employer]. Physical exam (Primary Care) Vital Signs: Last Vital Signs Pulse 88 09/10/23 09:20 BP 118/78 09/10/23 09:20 Pulse Ox 97 09/10/23 09:20 Oxygen Delivery Method Room Air 09/10/23 09:20 BMI result Body Mass Index 37.1 Tobacco/Smoking Status: Tobacco use Status Tobacco use date assessed 06/28/23 09/10/23 09:16 Patient Tobacco Use Status Never used Tobacco 09/10/23 09:16 e-Cigarette/Vaping Use Never Used 09/10/23 09:16 Thrive Assessment: Date of Thrive Assessment Date Thrive assessed 04/23/22 09/10/23 09:16 Const Other: Constitutional: Alert, in no distress. Neck: Supple, Full range of motion. No lymphadenopathy. Respiratory: Clear to auscultation. Cardiovascular: S1 S2 regular. No murmurs. Extremities: Warm and well perfused. No clubbing, cyanosis or edema. Psychiatric: Normal mood and affect Office Procedures EKG Details: EKG does not show acute ischemia or arrhythmia. Reviewed with precepting physician. [id number], Complete Assessment and Plan Assessment & Plan (1) Anxiety: Code(s): F41.9 - Anxiety disorder, unspecified Plan: I recommended counseling. She will think about this. She is concerned about taking an anxiety medication that could result in weight gain. Trial of buspirone 5 mg twice daily agreed upon. Black box warning reviewed. (2) Chest pain: Code(s): R07.9 - Chest pain, unspecified Qualifiers: Chest pain type: other chest pain Qualified Code(s): R07.89 - Other chest pain Plan: EKG does not show acute ischemic changes. No evidence of arrhythmia. No symptoms at present. Proceed with echocardiogram and exercise stress test though this may be due to anxiety and asthma.. (3) Exercise-induced asthma: Code(s): J45.990 - Exercise induced bronchospasm Plan: Working on weight loss which can improve asthma symptoms. Prescribed albuterol 2 puffs every 4 hours as needed for coughing, wheezing and shortness of breath and 15 minutes prior to vigorous exercise. (4) Obesity (BMI 30-39.9): Code(s): E66.9 - Obesity, unspecified Plan: Previous TSH normal. Continue lifestyle modifications. Submitted Zepbound to pharmacy. The patient denies contraindications to GLP-1 receptor agonist. We reviewed the FDA preliminary evaluation that has not found evidence that these medications cause suicidal thoughts or actions, but the investigation is ongoing. If the patient develops these symptoms they will stop taking the medication immediately and contact the office. We reviewed more common side effects such as bloating, constipation, nausea and vomiting. We reviewed the administration and dosing schedule. The patient is instructed to continue lifestyle modifications and efforts at weight loss. We discussed how weight loss can cause physiologic changes in the body and that some patients may experience hair thinning/hair loss. We also discussed that the medications are frequently backordered which may result in a delayed start or disruption when taking the medication. The patient understands it is their responsibility to contact alternative pharmacies if the medication is not available at their usual pharmacy. The patient is also made aware that insurance may deny coverage for the medication despite prior authorization. Orders: Orders CA stress test Today R07.89 - Other chest pain AMB EKG-In Office Today R07.9 - Chest pain, unspecified CA echo transthoracic complete Today R07.89 - Other chest pain Medications: New buspirone 5 mg PO BID 60 tabs 3RF tirzepatide (weight loss) (Zepbound) 2.5 mg (0.5 mL) subcut QWEEK 4 weeks 2 mL 0RF albuterol sulfate 90 mcg/actuation 2 puffs inhalation Q4-6H PRN 8.5 grams 0RF shortness of breath, cough or wheezing Discontinued escitalopram oxalate Discontinued Reason: No Longer Medically Relevant 10 mg PO DAILY 30 tabs 1RF semaglutide (Rybelsus) Discontinued Reason: Patient no longer taking 3 mg PO DAILY 30 days 30 tabs 1RF Coding Level of Care Code Est Pt Level 4 (57782) Complex EM visit Add On G2211 Diagnoses Anxiety F41.9 Other chest pain R07.89 Chest pain type: other chest pain Exercise-induced asthma J45.990 Obesity (BMI 30-39.9) E66.9 CPT Codes EKG - CPT: 00279-[id number], Complete ([id number])
[2023-09-10 09:20] VITALS: BP 118/78; PULSE 88; O2SAT 97; BMI 37.1
== END 2023-09-10 10:02 | disposition home or self-care (01) ==
PROVIDERS: PCP Physician Assistant Medical; Visit Provider Physician Assistant Medical
DX: R07.89 Other chest pain (principal); F41.9 Anxiety disorder, unspecified; E66.9 Obesity, unspecified; Z68.37 Body mass index [BMI] 37.0-37.9, adult; J45.990 Exercise induced bronchospasm
CPT/HCPCS: 93000; 99214; G2211

== ENCOUNTER → 2023-10-10 08:02 | Outpatient (REF) | payer OTHER, SELFPAY ==
--- NOTE | 2023-10-10 08:16 | CA_ITS ---
Transthoracic Echocardiogram Patient (Last, First, Middle): Laila Arvizu, Gender: Female Date of : 2000 Age: 23 Procedure Date: 10/10/2023 Procedure Type: Transthoracic Echocardiogram Location: OP Height: 170.18 cm Weight: 90.72 kg BSA: 2.02 m2 Heart Rate: bpm BP: 116 / 80 mmHg Employment Training Specialist: MARLI Referring MD: Prisca MORGAN Facility Maintenance Supervisor: Roderick Tran MD Symptoms: R07.89 - Other chest pain Study Quality: Adequate ECG Rhythm: Sinus Conclusions: - Essentially normal study Findings Left Ventricle Normal left ventricular size, thickness, and systolic function. The visually estimated ejection fraction is between 60-65%. Spectral Doppler is indicative of a normal filling pattern. Right Ventricle Normal right ventricular cavity size and systolic function. Atria Both atria are normal in size. There is no evidence of interatrial shunt. Aortic Valve The aortic valve structure and function is likely normal. There is no aortic valve stenosis. There is no aortic valve regurgitation. Mitral Valve Normal mitral valve structure and function. There is no mitral valve regurgitation. There is no mitral valve stenosis. Pulmonic Valve The pulmonic valve is likely normal. Tricuspid Valve Normal tricuspid valve structure. There is trace tricuspid valve regurgitation. The right ventricular systolic pressure is normal. The right ventricular systolic pressure is 16 mmHg. Normal right atrial pressure. There is no evidence of pulmonary hypertension. Great Vessels All visible segments of the aorta are normal in size. The pulmonary artery was not well visualized. Venous The inferior vena cava is normal in size and collapses greater than 50% with inspiration. Pericardium/Pleural There is no evidence of pericardial effusion. Prior Study Comparison No prior study available for comparison. Measurements 2D Linear Measurements IVSd: 0.69 0.6-0.9/0.6-1.0 cm LVIDd: 4.35 3.9-5.3/4.2-5.9 cm LVIDd Index: 2.15 2.4-3.2/2.2-3.1 cm/m2 LVIDs: 2.94 2.0-3.6 cm LVPWd: 0.97 0.7-1.1 cm LA Diam: 2.50 2.7-3.8/3.0-4.0 cm LAIDs Index: 1.24 1.5-2.3 cm/m2 LV Mass: 139.48 67-162/88-224 g LV Mass Index: 69.05 43-95/49-115 g/m2 LVOT Diam: 2.10 3.0+(-)1.3 cm 2D Systolic Function EF 4C: 58.80 >55% EF 2C: 62.10 >55% EF BiP: 60.90 >55% Mitral Valve MV Pk E: 0.67 MV PK A: 0.56 MV Decel Time: 232.00 E/A: 1.20 E'Lateral: 12.20 E'Medial: 9.03 E/E' Med: 7.50 E/E' Lat: 5.50 PHT: 68.00 MVA PHT: 3.24 Decel [place]: 2.90 Aortic Valve AoV Pk Fausto: 1.20 AoV Mn Fausto: 0.88 AoV VTI: 0.27 AoV Pk Grad: 6.00 Aov Mn Grad: 3.00 CORDELL Cont.VTI: 2.23 LVOT LVOT Pk Fausto: 0.87 LVOT Mn Fausto: 0.63 LVOT VTI: 0.17 LVOT Pk Grad: 3.00 LVOT Mn Grad: 2.00 LVOT Diam: 2.10 LVOT Area: 3.46 Diastolic Function MV Pk E: 0.67 MV Pk A: 0.56 E/A: 1.20 E'Medial: 9.03 E/E' Med: 7.50 E' Laterial: 12.20 E/E' Lat: 5.50 Right Ventricle TAPSE (mm): 24.90 TVS' Afusto: 11.60 Tricuspid Valve TR Pk Fausto: 1.82 TR Pk Grad: 13.00 RA Press: 3.00 RVSP: 16.00 Great Vessels Aorta Sinus of Valsalva: 2.96 2.0-3.[address] [place]: 2.29 1.7-3.4 cm Ao Asc: 2.80 2.1-3.4 cm Updated in Other Vendor System with Status of Final Roderick Tran MD electronically signed on 10/10/2023 5:54:51 PM with status of Final
== END ==
LOC: HO.CARD 08:02
PROVIDERS: PCP Physician Assistant Medical; Visit Provider Physician Assistant Medical
DX: R07.89 Other chest pain (principal)
CPT/HCPCS: 93306

== ENCOUNTER → 2023-10-10 08:16 | Outpatient (BNV) | payer OTHER, SELFPAY | PROVIDERS: PCP Physician Assistant Medical; Visit Provider Internal Medicine Cardiovascular Disease | DX: R07.89 Other chest pain (principal) | CPT/HCPCS: 93306 ==

== ENCOUNTER 2023-10-11 09:00 | Outpatient (AMB) | payer OTHER, SELFPAY ==
--- NOTE | 2023-10-11 09:07 | MHC.PC.OV ---
Vital Signs 10/11/23 09:09 Height 5 ft 6 in Weight 229 lb 4 oz BMI 37.0 BP 113/60 Blood Pressure Location Rt brachial Position Sitting Pulse 81 Pulse Source Pulse Oximeter Pulse Oximetry (%) 98 Oxygen Delivery Method Room Air Intake Visit Reasons: med visit Intake Note: Follow up Is last menstrual period known: No (started 6 days ago) Allergies diphenhydramine [From Benadryl] Allergy (Severe, Verified 10/11/23 09:08) Swelling bupropion Adverse Reaction (Severe, Verified 10/11/23 09:08) Depression Tobacco use date assessed: 06/28/23 Dental Screening Dental Screen Date: 06/28/23 HPI HPI Comments History of Present Illness Details This is a 23-year-old female with a past medical history of anxiety, obesity, vitamin-D deficiency and iron deficiency anemia presenting for a medication review. She is accompanied by her 3-year-old son. Anxiety-she had an adverse reaction to bupropion previously. She was prescribed Lexapro 10 mg, but she didn't start it due to concerns about weight gain with this type of medication. She is thinking about therapy, but she is not sure she can do it right now with her schedule. She denies depression. She feels like her anxiety is related to her difficulties with her weight, caring for her 3-year-old and working. I prescribed Buspiron 5 mg BID. She admits she isn't taking this as consistently as she should, but when she has taken it she finds it alleviates anxiety, and she wants to continue it. Obesity-she was prescribed Rybelsus, but she never was able to pick it up from the pharmacy. Wegovy was denied. Appeal for Ozempic is pending. She reported a history of exercise induced asthma at her last visit. She likes to run and do endurance activities. She endorses shortness of breath with vigorous exercise. This is also associated with a feeling of chest tightness and chest pain. She denies syncope or palpitations. Upon further questioning she said she does get chest pain when she is not exercising. She says this occurs with anxiety. It is described as a mild to moderate tight or painful feeling in the middle of her chest. She is a nonsmoker. She has no family history of heart disease. Echocardiogram was normal. Exercise stress test is pending. She has woken up with chest pain several times the past few weeks. Sometimes there is burning and sometimes she feels acid reflux. ROS: Constitutional: No unexplained weight loss, fever, chills or night sweats. Eyes: No vision changes, blurry vision. ENT: No hearing loss, sneezing, congestion, runny nose or sore throat. Respiratory: see HPI Cardiovascular: No palpitations or pedal edema. see HPI. Gastrointestinal: No anorexia, nausea, vomiting or diarrhea. No abdominal pain. Neurologic: No headache, dizziness, syncope Psychiatric: No SI/HI. Physical exam: Constitutional: Alert, in no distress. Neck: Supple, Full range of motion. No lymphadenopathy. Respiratory: Clear to auscultation. Cardiovascular: S1 S2 regular. No murmurs. Gastrointestinal: Abdomen soft, non-tender, non-distended. Normal bowel sounds. No palpable masses. Neurologic: No focal neurological deficits. Extremities: Warm and well perfused. No clubbing, cyanosis or edema. Psychiatric: Normal mood and affect [facility] Medical History (Updated 10/11/23 @ 10:07 by CATHY Gill) Chest pain Exercise-induced asthma Eczema Anemia Anxiety Surgical History History of surgical procedure on eye proper using laser Family History Mother Cervical cancer No family history of mental disorder Anxiety Social History (Updated 06/18/23 @ 09:53 by Rita Montoya [facility]) Household Members: Spouse Housing: House Alcohol intake: never Patient Tobacco Use Status: Never used Tobacco e-Cigarette/Vaping Use: Never Used service: No Current occupational status: employed Current occupation: [employer] Current occupational exposures/hazards: No Cognitive needs: No Hearing needs: No Vision needs: No Questionnaire Thrive Questionnaire Date Thrive assessed: 04/23/22 ELVA-7 AMB Questionnaire ELVA-7 Date ELVA - 7 assessed: 04/23/22 Source: Developed by Drs. Matthias Yates, María Elena Ramos, Jase Gonsalez and colleagues, with an educational coleen from [email or web address] Physical exam (Primary Care) Vital Signs: Last Vital Signs Pulse 81 10/11/23 09:09 BP 113/60 10/11/23 09:09 Pulse Ox 98 10/11/23 09:09 Oxygen Delivery Method Room Air 10/11/23 09:09 BMI result Body Mass Index 37.0 Tobacco/Smoking Status: Tobacco use Status Tobacco use date assessed 06/28/23 10/11/23 09:13 Patient Tobacco Use Status Never used Tobacco 10/11/23 09:13 e-Cigarette/Vaping Use Never Used 10/11/23 09:13 Thrive Assessment: Date of Thrive Assessment Date Thrive assessed 04/23/22 10/11/23 09:13 Assessment and Plan Assessment & Plan (1) ELVA (generalized anxiety disorder): Code(s): F41.1 - Generalized anxiety disorder Plan: I recommended therapy again. She will think about it. Continue Buspar 5 mg BID. Encouraged patient to take it consistently. (2) Severe obesity (BMI 35.0-39.9) with comorbidity: Code(s): E66.01 - Morbid (severe) obesity due to excess calories Plan: Prior TSH wnl. Appeal for Ozempic is being processed. Continue lifestyle modifications. (3) Chest pain: Code(s): R07.9 - Chest pain, unspecified Qualifiers: Chest pain type: other chest pain Qualified Code(s): R07.89 - Other chest pain Plan: Differential includes anxiety, asthmatic component, reflux, cardiac etiology (though does not have CP with exertion). Echo normal. Stress test being rescheduled per pt. CXR ordered. Trial of PPI. Pt to send portal message in 2-3 weeks to report benefit or not. Warning signs warranting ER evaluation reviewed. Plan Call to schedule follow up once stress test is rescheduled. Orders: Orders XR chest 2V Today R07.9 - Chest pain, unspecified Medications: New omeprazole 20 mg PO DAILY 30 caps 0RF Coding Level of Care Code Est Pt Level 4 (76380) Complex EM visit Add On G2211 Diagnoses ELVA (generalized anxiety disorder) F41.1 Severe obesity (BMI 35.0-39.9) with comorbidity E66.01 Other chest pain R07.89 Chest pain type: other chest pain
[2023-10-11 09:09] VITALS: BP 113/60; PULSE 81; O2SAT 98; BMI 37.0
== END 2023-10-11 09:42 | disposition home or self-care (01) ==
PROVIDERS: PCP Physician Assistant Medical; Visit Provider Physician Assistant Medical
DX: F41.1 Generalized anxiety disorder (principal); E66.01 Morbid (severe) obesity due to excess calories; R07.89 Other chest pain; Z68.37 Body mass index [BMI] 37.0-37.9, adult
CPT/HCPCS: 99214; G2211

== ENCOUNTER → 2023-12-19 11:49 | Outpatient (BNVA) | payer OTHER, SELFPAY | PROVIDERS: PCP Physician Assistant Medical; Visit Provider Physician Assistant Medical ==

== ENCOUNTER → 2023-12-19 11:49 | Outpatient (AMB) | payer OTHER, SELFPAY ==
--- NOTE | 2023-12-19 11:46 | A.OFFPC_ITS ---
Intake Visit Reasons: follow anxiety/depression/er visit Intake Note: Patient reports she would like to discuss mental health stuff. 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 Anxiety-she had an adverse reaction to bupropion previously. She was prescribed Lexapro 10 mg, but she didn't start it due to concerns about weight gain with this type of medication. I prescribed Buspiron 5 mg BID. She is taking it consistently now and noticed it helps. She is happy about that. She previously did not pursue therapy because of her busy schedule. I received a message from the on-call provider last weekend regarding this patient's mental health. She contacted the office on Saturday evening with anxiety and increase chest pains. She noted she was going through a tough time. She called crisis who had her speak to someone who determined she is not currently at risk and to follow up with her doctor. She was directed to go to the emergency department. She went to [facility]. After she was evaluated she was diagnosed with noncardiac chest pain and was discharged. She got in touch with the [facility]. Breezy brown paged the on-call. She appeared to request that her significant other, who is currently in basic training since early November, be allowed to come home citing anxiety and psychological issues is the main reason. The patient is very thankful that the on-call provider did this because she was able to speak to her partner for 20 minutes on Saturday. Usually she only gets to speak with them for 5 minutes per week. Ultimately it is the truman belcher to make the decision whether or not a partner is recalled because patient is not in immediate danger or critically ill. The patient misses her partner, and wishes he was home, but she also does not want him to come home since he has already done a month, and this is the career he chose. If he comes home it could also cause some additional financial stressors for them. She is trying to move out of her son's father's house. He wants to be with her still so this is creating a lot of tension. Her son is 3 years old. She works. She feels overwhelmed. She is emotionally exhausted. Patient says she has dealt with depression in the past, and she always has a anxiety. No SI or HI. The ER gave her a referral to be N. She went to the office last weekend, and they were going to see her same day, but she had other things to do for her son. She has a card she can call to schedule the appointment or they told her she can just show back up at the office. She is going to do this today or tomorrow. She ended up stopping Ozempic because on top of stress she was just not eating. She lost 10 lb since the beginning of November. She does not feel like her mental health is worsening because of the medication. She feels it is situational. ROS: Cardiovascular: No chest pain presently. Psychiatric: No SI/HI. [facility] Medical History Chest pain Exercise-induced asthma Eczema Anemia Anxiety Surgical History History of surgical procedure on eye proper using laser Family History Mother Cervical cancer No family history of mental disorder Anxiety Social History Household Members: Spouse Housing: House Alcohol intake: never Patient Tobacco Use Status: Never used Tobacco e-Cigarette/Vaping Use: Never Used service: No Current occupational status: employed Current occupation: registered [employer] Current occupational exposures/hazards: No Cognitive needs: No Hearing needs: No Vision needs: No Questionnaire Thrive Questionnaire Date Thrive assessed: 04/23/22 ELVA-7 AMB Questionnaire ELVA-7 Date ELVA - 7 assessed: 04/23/22 Source: Developed by Drs. Matthias Yates, María Elena Ramos, Jase Gonsalez and colleagues, with an educational coleen from [employer] Physical exam (Primary Care) Tobacco/Smoking Status: Tobacco use Status Tobacco use date assessed 06/28/23 12/19/23 11:48 Patient Tobacco Use Status Never used Tobacco 12/19/23 11:48 e-Cigarette/Vaping Use Never Used 12/19/23 11:48 Thrive Assessment: Date of Thrive Assessment Date Thrive assessed 04/23/22 12/19/23 11:48 Telehealth Telehealth Telehealth Platform: Telephone Location of provider rendering services: practice address Location of patient: address on file Patient Identification confirmed using: Name, : Yes Telehealth method: voice only Patient verbally consented to treatment: Yes Patient verbally consented to billing insurance company: Yes Patient informed of any privacy concerns related to visit: Yes Minutes spent on Phone/Video with Pt.: 20 Assessment and Plan Assessment & Plan (1) Anxiety: Code(s): F41.9 - Anxiety disorder, unspecified (2) Symptoms of depression: Code(s): R45.89 - Other symptoms and signs involving emotional state Plan I provided support to the patient and recommended she follow up with N for therapy. She plans to do this today or tomorrow. Increase buspirone 7.5 mg BID. Side effects reviewed. Offered psychiatric outpatient med consult. She declines for now. She will follow up in 2 weeks via telehealth or sooner as needed. Medications: New buspirone 7.5 mg PO BID 30 days 60 tabs 1RF Discontinued buspirone Discontinued Reason: Doctor's Order 5 mg PO BID 60 tabs 3RF Coding Level of Care Code Tele Est Pt Level 3 (67403) Diagnoses Anxiety F41.9 Symptoms of depression R45.89
== END ==
LOC: HO.HMCFM 11:49
PROVIDERS: PCP Physician Assistant Medical; Visit Provider Physician Assistant Medical
DX: F41.9 Anxiety disorder, unspecified (principal); R45.89 Other symptoms and signs involving emotional state

== ENCOUNTER 2023-12-30 13:57 | Outpatient (AMB) | payer OTHER, SELFPAY ==
--- NOTE | 2023-12-30 13:42 | A.OFFPC_ITS ---
Intake Visit Reasons: follow up for anxiety Intake Note: f/u for anxiety Allergies diphenhydramine [From Benadryl] Allergy (Severe, Verified 12/30/23 13:43) Swelling bupropion Adverse Reaction (Severe, Verified 12/30/23 13:43) Depression Tobacco use date assessed: 06/28/23 Dental Screening Dental Screen Date: 06/28/23 HPI HPI Comments History of Present Illness Details This is a 23-year-old female with a past medical history of anxiety, obesity, vitamin-D deficiency and iron deficiency anemia presenting for anxiety/depression. The patient says she is doing okay since our last discussion. She increased buspirone to 7.5 mg twice daily. It helps, but she would like to increase the dose further. No side effects. She is having some difficulty sleep, and she would like to restart a prescription for hydroxyzine. Allergy list says Benadryl causes swelling, but she has taken hydroxyzine in the past with no reactions. It worked well for her. She got in touch with a therapist at [facility]. She has been having phone appointments which works better for her schedule. As you recall, her partner is in basic training right now. The patient works. She has a 3-year-old son. She is currently trying to move out of her son's father's house. ROS: Psychiatric: No SI/HI. PFSH Medical History Chest pain Exercise-induced asthma Eczema Anemia Anxiety Surgical History History of surgical procedure on eye proper using laser Family History Mother Cervical cancer No family history of mental disorder Anxiety Social History Household Members: Spouse Housing: House Alcohol intake: never Patient Tobacco Use Status: Never used Tobacco e-Cigarette/Vaping Use: Never Used service: No Current occupational status: employed Current occupation: registered [employer] Current occupational exposures/hazards: No Cognitive needs: No Hearing needs: No Vision needs: No Questionnaire Thrive Questionnaire Date Thrive assessed: 04/23/22 ELVA-7 AMB Questionnaire ELVA-7 Date ELVA - 7 assessed: 04/23/22 Source: Developed by Drs. Matthias Yates, María Elena Ramos, Jase Gonsalez and colleagues, with an educational coleen from [employer]. Physical exam (Primary Care) Tobacco/Smoking Status: Tobacco use Status Tobacco use date assessed 06/28/23 12/19/23 11:48 Patient Tobacco Use Status Never used Tobacco 12/19/23 11:48 e-Cigarette/Vaping Use Never Used 12/19/23 11:48 Thrive Assessment: Date of Thrive Assessment Date Thrive assessed 04/23/22 12/19/23 11:48 Telehealth Telehealth Telehealth Platform: Telephone Location of provider rendering services: practice address Location of patient: address on file Patient Identification confirmed using: Name, : Yes Telehealth method: voice only Patient verbally consented to treatment: Yes Patient verbally consented to billing insurance company: Yes Patient informed of any privacy concerns related to visit: Yes Minutes spent on Phone/Video with Pt.: 10 Coding Level of Care Code Tele Est Pt Level 3 (91280) Complex EM visit Add On G2211 Diagnoses ELVA (generalized anxiety disorder) F41.1 Assessment & Plan Assessment & Plan (1) ELVA (generalized anxiety disorder): Code(s): F41.1 - Generalized anxiety disorder Category: Medical Plan Increase buspirone to 10 mg twice daily. Side effects and administration reviewed. Prescribed hydroxyzine 25-50 mg at bedtime as needed for sleep. Cautioned about sedation and drowsiness. Do not drive or operate heavy machinery on this medication. Patient is speaking with therapist at [facility]. Follow up in 4 weeks for medication review. Medications: New buspirone 10 mg PO BID 60 tabs 1RF Refilled albuterol sulfate 90 mcg/actuation 2 puffs inhalation Q4-6H PRN 8.5 grams 1RF shortness of breath, cough or wheezing Discontinued buspirone Discontinued Reason: Doctor's Order 7.5 mg PO BID 30 days 60 tabs 1RF
== END 2023-12-30 14:09 | disposition home or self-care (01) ==
LOC: HO.HMCFM 13:57
PROVIDERS: PCP Physician Assistant Medical; Visit Provider Physician Assistant Medical
DX: F41.1 Generalized anxiety disorder (principal)

== ENCOUNTER → 2023-12-30 13:57 | Outpatient (BNVA) | payer OTHER, SELFPAY | PROVIDERS: PCP Physician Assistant Medical; Visit Provider Physician Assistant Medical ==

== ENCOUNTER → 2024-01-27 15:12 | Outpatient (BNVA) | payer OTHER, SELFPAY | PROVIDERS: PCP Physician Assistant Medical; Visit Provider Physician Assistant Medical ==

== ENCOUNTER 2024-08-20 09:18 | Outpatient (AMB) | payer OTHER, SELFPAY ==
--- NOTE | 2024-08-20 09:27 | A.OFFPC_ITS ---
Vital Signs 08/20/24 09:31 Height 5 ft 6 in Weight 230 lb BMI 37.1 BP 110/60 Blood Pressure Location Rt brachial Position Sitting Pulse 83 Pulse Source Pulse Oximeter Pulse Oximetry (%) 98 Oxygen Delivery Method Room Air Intake Visit Reasons: Med Review Intake Note: Laila presents in the office today for a medication review. Allergies diphenhydramine [From Benadryl] Allergy (Severe, Verified 08/20/24 09:28) Swelling bupropion Adverse Reaction (Severe, Verified 08/20/24 09:28) Depression Tobacco use date assessed: 08/20/24 Dental Screening Dental Screen Date: 08/20/24 Did you have a dental visit in the last 12 months?: Yes Did you have a dental problem in the last 6 months where you did not have access to dental care?: No Was dental information given to patient?: Patient has dentist HPI HPI Comments History of Present Illness Details This is a 23-year-old female with a past medical history of dyspnea on exertion, chest pain, asthma, generalized anxiety disorder, obesity, anemia and vitamin-D deficiency presenting to discuss weight loss medication. Obesity-during the past 6 months she is doing intermittent fasting, low- carbohydrate and walking and going to the gym and hiking for exercise. She exercises 30-120 minutes per day. Despite this she has not lost any weight. Her weight is 230 lb today which is the same as August of 2023. Her BMI is 37.1. She started Ozempic last year, but she discontinued it, and now she needs a new authorization for insurance to cover it. She denies side effects on the medication. She drinks no alcohol. She has note contraindications to GLP 1. Patient's last blood sugar was mildly elevated. No A1c on file. Anxiety-patient says she does still struggle with this, but it is stable. Her depression screening is also positive. She is not in therapy right now. She stopped taking Prozac. She takes buspirone sometime and uses hydroxyzine occasionally at night. She is not interested in further treatment or referrals at this time. No SI or HI. Last year she was evaluated for chest pain and dyspnea on exertion. She described the pain as tightness. She had no syncope or palpitations. She also reported having chest pain sometimes when not exercising which generally occurred with anxiety. She is a nonsmoker. She has no family history of heart disease. Cardiac testing was ordered. She completed the echocardiogram in September of 2023 which was essentially normal. A stress test was ordered, but that day she had her son with her so she could not have the testing done. Chest x-ray was ordered, but she never completed it.Albuterol does not always alleviate her symptoms. No leg swelling. No chest pain or shortness of breath today. No history of clots. ROS: Constitutional: No unexplained weight loss, fever, chills or night sweats. Eyes: No vision changes, blurry vision, double vision, eye pain, eye redness, eye discharge. ENT: No hearing loss, sneezing, congestion, runny nose or sore throat. Respiratory: No cough or sputum production. No hemoptysis. Cardiovascular: No syncope, palpitations or pedal edema Gastrointestinal: No anorexia, nausea, vomiting or diarrhea. No abdominal pain or blood in stool. Neurologic: No headache, dizziness, syncope, unilateral weakness, ataxia, numbness or tingling in the extremities. Endocrine: No cold or heat intolerance. No polyuria or polydipsia. Psychiatric: see HPI Physical exam: Constitutional: Alert, in no distress. Eyes: Pupils are equal, round and reactive to light. Extraocular muscles intact. Neck: Supple, Full range of motion. No lymphadenopathy. No palpable thyroid masses. Respiratory: Clear to auscultation. Cardiovascular: S1 S2 regular. No murmurs. Gastrointestinal: Abdomen soft, non-tender, non-distended. Normal bowel sounds. No palpable masses. Neurologic: No focal neurological deficits. Extremities: Warm and well perfused. No clubbing, cyanosis or edema. Intactperipheral pulses bilaterally. Psychiatric: Normal mood and affect [facility] Medical History (Updated 08/21/24 @ 12:47 by CATHY Gill) Anxiety and depression Abnormal EKG LEMUS (dyspnea on exertion) Chest pain Exercise-induced asthma Eczema Anemia Anxiety Surgical History History of surgical procedure on eye proper using laser Family History Mother Cervical cancer No family history of mental disorder Anxiety Social History (Updated 08/20/24 @ 09:30 by Arminda Nazario MA) Household Members: Spouse Housing: House Alcohol intake: never Patient Tobacco Use Status: Never used Tobacco e-Cigarette/Vaping Use: Never Used service: No Current occupational status: employed Current occupation: [employer] Current occupational exposures/hazards: No Cognitive needs: No Hearing needs: No Vision needs: No Questionnaire PHQ-9 Over the last 2 weeks, how often have you been bothered by any of the following problems? 1. Little interest or pleasure in doing things: several days 2. Feeling down, depressed, or hopeless: several days 3. Trouble falling or staying asleep, or sleeping too much: several days 4. Feeling tired or having little energy: nearly every day 5. Poor appetite or overeating: several days 6. Feeling bad about yourself - or that you are a failure or have let yourself or your family down: several days 7. Trouble concentrating on things, such as reading the newspaper or watching television: not at all 8. Moving or speaking so slowly that other people could have noticed. Or the opposite - being so fidgety or restless that you have been moving around a lot more than usual: not at all 9. Thoughts that you would be better off or of hurting yourself in some way: not at all Total score: 8 Depression Screening Interpretation: Positive Depression Screening Done: Yes 43882 - PHQ-9 Billing: Yes Source: Developed by Drs. Matthias Yates, María Elena Ramos, Jase Gonsalez and colleagues, with an educational coleen from [employer]. Thrive Questionnaire Date Thrive assessed: 08/20/24 I am a: Patient What is your living situation today?: I have a place to live, but I am worried about losing it in the future Within the past 12 months, did the food you bought not last and you didn't have the money to get more?: Never true Within the past 12 months, did you worry whether your food would run out before you got money to buy more?: Never true Do you have trouble paying for medicines?: No Do you have trouble getting transportation to medical appointments?: No Do you have trouble paying your heating and electricity bill?: No Do you have trouble taking care of your child, family member or friend?: No Do you have trouble with day-to-day activities such as bathing, preparing meals, shopping, managing finances, etc.?: No Are you currently unemployed and looking for a job?: No Are you interested in more education?: No Please select the resources that you would like help with: Housing/Jail and Daily support Currently or been in a relationship where the following occur: No concerns reported THRIVE Score: 1 AUDIT C Alcohol Use Questionnaire (AUDIT-C) 1. How often do you have a drink containing alcohol?: Monthly or less 2. How many drinks containing alcohol do you have on a typical day when you are drinking?: 1 or 2 3. How often do you have six or more drinks on one occasion?: Never Total Score: 1 ELVA-7 AMB Questionnaire ELVA-7 Date ELVA - 7 assessed: 08/20/24 Feeling nervous, anxious, or on edge: 2 = More than half the days Not being able to stop or control worryin = More than half the days Worrying too much about different things: 2 = More than half the days Trouble relaxin = More than half the days Being so restless that it is hard to sit still: 1 = Several days Becoming easily annoyed or irritable: 3 = Nearly every day Feeling afraid as if something awful might happen: 0 = Not at all Total ELVA-7 score (0-4 normal; 5-9 mild; 10-14 moderate; 15-21 severe): 12 Source: Developed by Drs. Matthias Yates, María Elena Ramos, Jase Gonsalez and colleagues, with an educational coleen from [employer]. ELVA-7 Assessment Billing ELVA-7 Assessment Tool: ELVA-7 Assessment 93833 Physical exam (Primary Care) Vital Signs: Last Vital Signs Pulse 83 08/20/24 09:31 BP 110/60 08/20/24 09:31 Pulse Ox 98 08/20/24 09:31 Oxygen Delivery Method Room Air 08/20/24 09:31 BMI result Body Mass Index 37.1 Tobacco/Smoking Status: Tobacco use Status Tobacco use date assessed 08/20/24 08/20/24 09:34 Patient Tobacco Use Status Never used Tobacco 08/20/24 09:34 e-Cigarette/Vaping Use Never Used 08/20/24 09:34 PHQ-9: PHQ-9 Score PHQ-9: Total score 8 08/20/24 17:48 Depression Screening Interpretation: Positive Thrive Assessment: Date of Thrive Assessment Date Thrive assessed 08/20/24 08/20/24 09:34 Currently or been in a relationship where the following occur: No concerns reported Office Procedures EKG Details: EKG shows normal sinus rhythm, low-voltage QRS, T-wave inversion lead III, nonspecific T-wave abnormality in AVF 50273-[id number], Complete Coding Level of Care Code Est Pt Level 4 (66598) Complex EM visit Add On G2211 Diagnoses Screening for cardiovascular condition Z13.6 Anxiety and depression F41.9; F32.A Abnormal EKG R94.31 LEMUS (dyspnea on exertion) R06.09 Other chest pain R07.89 Chest pain type: other chest pain Exercise-induced asthma J45.990 Severe obesity (BMI 35.0-39.9) with comorbidity E66.01 CPT Codes EKG - CPT: 47551-Xtckemaaphxbsukaz, Complete ([id number]) Additional Codes ELVA-7 Assessment Billing - ELVA-7 Assessment Tool: ELVA-7 Assessment 55615 ([id number]) PHQ-9 - 69418 - PHQ-9 Billing: Yes ([id number]) Assessment & Plan Assessment & Plan (1) Screening for cardiovascular condition: Code(s): Z13.6 - Encounter for screening for cardiovascular disorders (2) Anxiety and depression: Code(s): F41.9 - Anxiety disorder, unspecified; F32.A - Depression, unspecified Category: Medical Plan: Symptoms are uncontrolled. She declines referral to behavioral health. She does not want to take additional medications at this time. We will continue to monitor this. (3) Abnormal EKG: Code(s): R94.31 - Abnormal electrocardiogram [ECG] [EKG] Category: Medical Plan: EKG not consistent with acute ischemia. No anginal symptoms today. Proceed with cardiac stress test. I ordered this again. Refer to cardiology. (4) LEMUS (dyspnea on exertion): Code(s): R06.09 - Other forms of dyspnea Category: Medical Plan: Proceed with stress test. Echocardiogram was normal. Ordered chest x-ray and pulmonary function test. Warning signs warranting ER evaluation reviewed with the patient. We will consider starting ICS based on results. Continue albuterol 2 puffs every 4 hours as needed. She has a history of anemia. Check CBC. (5) Chest pain: Code(s): R07.9 - Chest pain, unspecified Category: Medical Qualifiers: Chest pain type: other chest pain Qualified Code(s): R07.89 - Other chest pain Plan: See above notes regarding EKG and further cardiac workup. Referred to Cardiology. Chest x-ray and PFT ordered. (6) Exercise-induced asthma: Code(s): J45.990 - Exercise induced bronchospasm Category: Medical Plan: See above notes. (7) Severe obesity (BMI 35.0-39.9) with comorbidity: Code(s): E66.01 - Morbid (severe) obesity due to excess calories Category: Medical Plan: Patient denies contraindications to GLP 1. We will restart Ozempic at 0.25 mg weekly. It will require prior authorization. It is medically necessary. She has not been able to lose weight despite lifestyle modifications. Side effects reviewed with the patient. Plan Schedule follow up in 3 months. Orders: Orders Vitamin B12 and Folate 08/20/24 D64.9 - Anemia, unspecified, R73.01 - Impaired fasting glucose, Z13.6 - Encounter for screening for cardiovascular disorders Complete Blood Count Auto Diff 08/20/24 R73.01 - Impaired fasting glucose, Z13.6 - Encounter for screening for cardiovascular disorders Hemoglobin A1c 08/20/24 E11.9 - Type 2 diabetes mellitus without complications, R73.01 - Impaired fasting glucose, Z13.6 - Encounter for screening for cardiovascular disorders Lipid Panel 08/20/24 E78.5 - Hyperlipidemia, unspecified, R73.01 - Impaired fasting glucose, Z13.6 - Encounter for screening for cardiovascular disorders CA stress test 08/20/24 R94.31 - Abnormal electrocardiogram [ECG] [EKG] AMB EKG-In Office 08/20/24 R06.09 - Other forms of dyspnea Vitamin D 25-OH (D2 and D3) 08/20/24 E55.9 - Vitamin D deficiency, unspecified, R73.01 - Impaired fasting glucose, Z13.6 - Encounter for screening for cardiovascular disorders IRON PROFILE 08/20/24 D64.9 - Anemia, unspecified, R73.01 - Impaired fasting glucose, Z13.6 - Encounter for screening for cardiovascular disorders Comprehensive Met. Panel 08/20/24 R73.01 - Impaired fasting glucose, Z13.6 - Encounter for screening for cardiovascular disorders TSH reflex Free T4 08/20/24 R73.01 - Impaired fasting glucose, Z13.6 - Encounter for screening for cardiovascular disorders XR chest 2V 08/20/24 J45.990 - Exercise induced bronchospasm PFT pulmonary function test 08/20/24 R06.09 - Other forms of dyspnea Referrals Cardiology Referral R06.09 - Other forms of dyspnea, R07.89 - Other chest pain, R94.31 - Abnormal electrocardiogram [ECG] [EKG] Medications: Refilled hydroxyzine HCl 25 - 50 mg (1 - 2 x 25 mg) PO BEDTIME 30 days PRN 60 tabs 3RF sleep albuterol sulfate 90 mcg/actuation 2 puffs inhalation Q4-6H PRN 8.5 grams 1RF shortness of breath, cough or wheezing Discontinued fluoxetine Discontinued Reason: Doctor's Order 20 mg PO DAILY 30 days 30 tabs 1RF
[2024-08-20 09:31] VITALS: BP 110/60; PULSE 83; O2SAT 98; BMI 37.1
--- OUTSIDE RECORDS SUMMARY | 2024-08-20 09:42 | XMS_ITS | Clinical Summary ---
Author Organization [facility] ity Address [address] [place] [address] Care Team Providers Care Teacher Music Name Role Phone Unavailable Primary Care Provider Unavailabl e Surgical History Surgery Date Site/Laterality Comments EYE SURGERY Left PROCEDURE: HISTORICAL EYE SURGERY; COMMENT: Correction of strabismus. Medical History Medical History Date Comments Depressive disorder DX:Depressiv e disorder Anxiety state DX:Anxiety state Chronic neck and back pain DX:Ch ronic neck and back pain Insomnia DX:Insomnia Family History Medical History Relation Name Comments No Known Problems Father Cervical cancer Mother Relation Name Status Comments Brother Alive Father Alive Mother Alive Social History Tobacco Use Types Packs/Day Years Used Date Smoking Tobacco: Never Smokeless Tobacco: Never Comments Unknown Sex and Gender Information Value Date Recorded Sex Assigned at Not on file Legal Sex Female 1:55 PM EST Gender Identity Not on file Sexual Orientation Not on file Obstetrics History Plan of Treatment Health Maintenance Due Date Last Done Comments Gonorrhea/Chlamydia Screening 2000 HPV Vaccines (1 - 3-dose series) 09/06/2015 Meningococcal B Vaccine (1 o f 2 - Standard) 2016 DTaP,Tdap,and Td Vaccines (1 - Tdap) 09/06/2019 Hepatitis B Vaccines (1 of 3 - 19+ 3-dose series) 09/06/2019 Cervical Cancer Screening: P ap Smear 2021 Depression Screening 02/21/2022 HIV Screening 02/21/2022 Hepatitis C Screening 02/21/2022 Social Influencers of Health Screening 02/21/2022 COVID-19 Vaccine ( - 2023-2 5 season) 2023 Influenza Vaccine (Season Ended) 2024 HIB Vaccines Aged Out No longer eligi ble based on patient's age to complete this topic Hepatitis A Vaccines Aged Out No long er eligible based on patient's age to complete this topic IPV Vaccines Aged Out No longer eligi ble based on patient's age to complete this topic MMR Vaccines Aged Out No longer eligi ble based on patient's age to complete this topic Meningococcal ACWY Vaccine Aged Out N o longer eligible based on patient's age to complete this topic Pneumococcal Vaccine: Pediat rics (0 to 5 Years) and At-Risk Patients (6 to 64 Years) Aged Out No longer eligible b ased on patient's age to complete this topic RSV Immunization Patients Un yogesh 20 months Aged Out No longer eligible b ased on patient's age to complete this topic Varicella Vaccines Aged Out No longer eligible based on patient's age to complete this topic
== END 2024-08-20 10:21 | disposition home or self-care (01) ==
LOC: HO.HMCFM 09:19
PROVIDERS: PCP Physician Assistant Medical; Visit Provider Physician Assistant Medical
DX: R07.9 Chest pain, unspecified (principal); R06.09 Other forms of dyspnea

== ENCOUNTER → 2024-08-20 09:18 | Outpatient (BNVA) | payer OTHER, SELFPAY | PROVIDERS: PCP Physician Assistant Medical; Visit Provider Physician Assistant Medical | DX: F41.9 Anxiety disorder, unspecified (principal); F32.A Depression, unspecified; R94.31 Abnormal electrocardiogram [ECG] [EKG]; R06.09 Other forms of dyspnea; R07.89 Other chest pain; J45.990 Exercise induced bronchospasm; E66.01 Morbid (severe) obesity due to excess calories; Z68.37 Body mass index [BMI] 37.0-37.9, adult | CPT/HCPCS: 93005; 96127; 99212 ==

== ENCOUNTER 2024-11-26 11:18 | Outpatient (AMB) | payer OTHER, SELFPAY ==
--- NOTE | 2024-11-26 11:21 | A.OFFPC_ITS ---
Vital Signs 11/26/24 11:27 Height 5 ft 6 in Weight 227 lb BMI 36.6 BP 102/68 Blood Pressure Location Rt brachial Position Sitting Respiration 14 Pulse 84 Pulse Source Pulse Oximeter Temp 97.3 F Temp Source Temporal Artery Scan Pulse Oximetry (%) 99 Oxygen Delivery Method Room Air Intake Visit Reasons: physical/med check Intake Note: Laila presents in the office today for her annual physical and medication check in. Allergies diphenhydramine (From Benadryl) Allergy (Severe, Verified 11/26/24 11:24) Swelling bupropion Adverse Reaction (Severe, Verified 11/26/24 11:24) Depression Tobacco use date assessed: 11/26/24 Dental Screening Dental Screen Date: 11/26/24 Did you have a dental visit in the last 12 months?: Yes Did you have a dental problem in the last 6 months where you did not have access to dental care?: No Was dental information given to patient?: Patient has dentist HPI HPI Comments History of Present Illness Details This is a 23-year-old female with a past medical history of dyspnea on exertion, chest pain, asthma, generalized anxiety disorder, obesity, anemia and vitamin-D deficiency presenting to discuss weight loss medication. We previously discussed chest pain and dyspnea on exertion. She described the pain as tightness. She had no syncope or palpitations. She also reported having chest pain sometimes would not exercising which generally occurred with anxiety. She is a nonsmoker and has no family history of heart disease. She completed the echocardiogram in September of 2023 which was essentially normal. A stress test was ordered, but the day she had it she took her son with her so they could not have the testing done. Chest x-ray was never completed. PFT was not completed. Albuterol does not always alleviate her symptoms. She denies leg swelling. Since our last visit she reports chest pain has improved. She feels like it is related to anxiety and asthma. She says this in the context of requesting phentermine which I denied due to ongoing evaluation of symptoms and prior abnormal EKG. I referred her to Cardiology and reordered a stress test, PFT and chest x-ray at the end of July for her. I advised the patient she needs to have these referrals and orders completed. She had an EKG repeated on 08/20/2024 which showed normal sinus rhythm, right axis deviation, low-voltage QRS and nonspecific T-wave abnormality. She is using omeprazole occasionally for acid reflux. She does not take spironolactone consistently. This is prescribed for acne. She is not taking her vitamin-D or iron supplement consistently. She is agreeable to have her lab work completed. She may need an MMR titer for her new job. She will let me know. We discussed there is no record of Tdap vaccine, and she does not recall if she had it with her . She deferred it today. I recommended the seasonal influenza vaccine. She is going to schedule an appointment with Gynecology. ROS: Constitutional: No unexplained weight loss, fever, chills or night sweats. Eyes: No vision changes, blurry vision, double vision, eye pain, eye redness, eye discharge. ENT: No hearing loss, sneezing, congestion, runny nose or sore throat. Respiratory: Endorses shortness of breath as above. No shortness a breath within the past week. Denies cough, hemoptysis and sputum production. Cardiovascular: Denies palpitations, pedal edema. Endorses chest pain as above. No chest pain within the past week. Gastrointestinal: No anorexia, nausea, vomiting or diarrhea. No abdominal pain or blood in stool. She has constipation sometimes. Recommended Benefiber. Genitourinary: No dysuria, hematuria, urinary frequency. Neurologic: No headache, dizziness, syncope, unilateral weakness, ataxia, numbness or tingling in the extremities. Musculoskeletal: No muscle pain, back pain, joint pain or swelling. Hematologic/Lymphatics: No bleeding or bruising. No painful lymph nodes. Skin: No rash Endocrine: No cold or heat intolerance. No polyuria or polydipsia. Psychiatric: No SI/HI. Physical exam: Constitutional: Alert, in no distress. Head: Normocephalic. Eyes: Pupils are equal, round and reactive to light. Extraocular muscles intact. Ear, Nose and Throat: Canals clear. TMs normal. Normal nasal mucosa. No nasal discharge. No oral lesions. Neck: Supple, Full range of motion. No lymphadenopathy. No palpable thyroid masses. Respiratory: Clear to auscultation. Cardiovascular: S1 S2 regular. No murmurs. Gastrointestinal: Abdomen soft, non-tender, non-distended. Normal bowel sounds. No palpable masses. Neurologic: No focal neurological deficits. Symmetric patellar reflexes. Moves all extremities spontaneously. Sensation intact bilaterally. Skin: No rashes or lesions. Musculoskeletal: No gross deformities. Normal range of motion. Extremities: Warm and well perfused. No clubbing, cyanosis or edema. Intact peripheral pulses bilaterally Psychiatric: Normal mood and affect [facility] Medical History (Updated 11/27/24 @ 09:04 by CATHY Gill) Routine physical examination Anxiety and depression Abnormal EKG LEMUS (dyspnea on exertion) Chest pain Exercise-induced asthma Eczema Anemia Anxiety Surgical History History of surgical procedure on eye proper using laser Family History Mother Cervical cancer No family history of mental disorder Anxiety Social History (Updated 11/26/24 @ 11:27 by Arminda Nazario MA) Household Members: Spouse Housing: House Alcohol intake: never Patient Tobacco Use Status: Never used Tobacco e-Cigarette/Vaping Use: Never Used Second Hand Smoke Exposure: No Use of substances other than those prescribed or required for medical reasons: No service: No Current occupational status: employed Current occupation: [employer] Current occupational exposures/hazards: No Cognitive needs: No Hearing needs: No Vision needs: No Questionnaire PHQ-9 Over the last 2 weeks, how often have you been bothered by any of the following problems? 1. Little interest or pleasure in doing things: several days 2. Feeling down, depressed, or hopeless: more than half the days 3. Trouble falling or staying asleep, or sleeping too much: several days 4. Feeling tired or having little energy: more than half the days 5. Poor appetite or overeating: several days 6. Feeling bad about yourself - or that you are a failure or have let yourself or your family down: several days 7. Trouble concentrating on things, such as reading the newspaper or watching television: not at all 8. Moving or speaking so slowly that other people could have noticed. Or the opposite - being so fidgety or restless that you have been moving around a lot more than usual: not at all 9. Thoughts that you would be better off or of hurting yourself in some way: not at all Total score: 8 Depression Screening Interpretation: Positive Depression Screening Follow-up: Existing condition Depression Screening Done: Yes 12441 - PHQ-9 Billing: Yes Source: Developed by Drs. Matthias Yates, María Elena Ramos, Jase Gonsalez and colleagues, with an educational coleen from [employer]. Thrive Questionnaire Date Thrive assessed: 11/26/24 I am a: Patient What is your living situation today?: I have a place to live, but I am worried about losing it in the future Within the past 12 months, did the food you bought not last and you didn't have the money to get more?: Never true Within the past 12 months, did you worry whether your food would run out before you got money to buy more?: Never true Do you have trouble paying for medicines?: No Do you have trouble getting transportation to medical appointments?: No Do you have trouble paying your heating and electricity bill?: No Do you have trouble taking care of your child, family member or friend?: No Do you have trouble with day-to-day activities such as bathing, preparing meals, shopping, managing finances, etc.?: No Are you currently unemployed and looking for a job?: No Are you interested in more education?: No Currently or been in a relationship where the following occur: No concerns reported THRIVE Score: 1 AUDIT C Alcohol Use Questionnaire (AUDIT-C) 1. How often do you have a drink containing alcohol?: Never 3. How often do you have six or more drinks on one occasion?: Never Total Score: 0 ELVA-7 AMB Questionnaire ELVA-7 Date ELVA - 7 assessed: 08/20/24 Feeling nervous, anxious, or on edge: 1 = Several days Not being able to stop or control worryin = More than half the days Worrying too much about different things: 2 = More than half the days Trouble relaxin = Nearly every day Being so restless that it is hard to sit still: 0 = Not at all Becoming easily annoyed or irritable: 1 = Several days Feeling afraid as if something awful might happen: 0 = Not at all Total ELVA-7 score (0-4 normal; 5-9 mild; 10-14 moderate; 15-21 severe): 9 Source: Developed by Drs. Matthias Yates, Jase Aragonoenke and colleagues, with an educational coleen from [employer]. ELVA-7 Assessment Billing ELVA-7 Assessment Tool: ELVA-7 Assessment 97063 Physical exam (Primary Care) Vital Signs: Last Vital Signs Temp 97.3 F 11/26/24 11:27 Pulse 84 11/26/24 11:27 Resp 14 11/26/24 11:27 BP 102/68 11/26/24 11:27 Pulse Ox 99 11/26/24 11:27 Oxygen Delivery Method Room Air 11/26/24 11:27 BMI result Body Mass Index 36.6 Tobacco/Smoking Status: Tobacco use Status Tobacco use date assessed 11/26/24 11/26/24 11:31 Patient Tobacco Use Status Never used Tobacco 11/26/24 11:27 e-Cigarette/Vaping Use Never Used 11/26/24 11:27 PHQ-9: PHQ-9 Score PHQ-9: Total score 8 11/26/24 13:56 Depression Screening Interpretation: Positive Depression Screening Follow-up: Existing condition Thrive Assessment: Date of Thrive Assessment Date Thrive assessed 11/26/24 11/26/24 11:23 Currently or been in a relationship where the following occur: No concerns reported Coding Level of Care Code Est Pt Level 3 (65410) Est Pt Prev Care 18-39y(94682) Diagnoses Routine physical examination Z00.00 Screening for cardiovascular condition Z13.6 Anxiety and depression F41.9; F32.A Abnormal EKG R94.31 LEMUS (dyspnea on exertion) R06.09 Other chest pain R07.89 Chest pain type: other chest pain Exercise-induced asthma J45.990 Severe obesity (BMI 35.0-39.9) with comorbidity E66.01 Additional Codes ELVA-7 Assessment Billing - ELVA-7 Assessment Tool: ELVA-7 Assessment 25242 ([id number]) PHQ-9 - 42466 - PHQ-9 Billing: Yes ([id number]) Assessment & Plan Assessment & Plan (1) Routine physical examination: Code(s): Z00.00 - Encounter for general adult medical examination without abnormal findings Category: Medical Plan: Patient is seen today for a routine physical. As part of this visit we reviewed the following issues, which are considered and essential part of preventative health in this age group: - Breast Cancer screening - Annual Pattern Checker exam - Blood pressure screening - Cholesterol screening - Osteoporosis prevention including calcium/vitamin D intake, weight bearing exercise & smoking cessation - Nutritional and exercise counseling - Counseling of injury prevention including fire prevention, smoke alarms and seat belt usage - Screening for depression - Prevention of and/or testing for infectious diseases - declined - Education about skin cancer - Recommendations about immunizations - Recommendation of an eye exam - Screening for substance abuse (2) Screening for cardiovascular condition: Code(s): Z13.6 - Encounter for screening for cardiovascular disorders (3) Anxiety and depression: Code(s): F41.9 - Anxiety disorder, unspecified; F32.A - Depression, unspecified Category: Medical Plan: She declines referral to behavioral health. She does not want to take additional medications at this time. We will continue to monitor this. (4) Abnormal EKG: Code(s): R94.31 - Abnormal electrocardiogram [ECG] [EKG] Category: Medical Plan: Reviewed with the patient that she needs further evaluation to rule out cardiovascular disease. She was advised to contact Cardiology to schedule the consult and schedule her stress test. Reviewed warning signs warranting ER evaluation. (5) LEMUS (dyspnea on exertion): Code(s): R06.09 - Other forms of dyspnea Category: Medical Plan: Proceed with stress test. Echocardiogram was normal. Advised patient to schedule chest x-ray and pulmonary function test. Warning signs warranting ER evaluation reviewed with the patient. We will consider starting ICS based on results. Continue albuterol 2 puffs every 4 hours as needed. Check CBC. She has a history of anemia. (6) Chest pain: Code(s): R07.9 - Chest pain, unspecified Category: Medical Qualifiers: Chest pain type: other chest pain Qualified Code(s): R07.89 - Other chest pain Plan: See above notes regarding EKG and further cardiopulmonary workup. Referred to Cardiology. (7) Exercise-induced asthma: Code(s): J45.990 - Exercise induced bronchospasm Category: Medical Plan: See above notes. (8) Severe obesity (BMI 35.0-39.9) with comorbidity: Code(s): E66.01 - Morbid (severe) obesity due to excess calories Category: Medical Plan: We are waiting on the appeal decision from the insurance for the GLP 1. She is not a candidate for phentermine. Recommended decreasing portion sizes. Continue low carbohydrate low sugar diet. Exercise to promote weight loss. Plan Schedule follow up in 3 months. Schedule physical in 1 year. Medications: Refilled albuterol sulfate 90 mcg/actuation 2 puffs inhalation Q4-6H PRN 8.5 grams 1RF shortness of breath, cough or wheezing
[2024-11-26 11:27] VITALS: BP 102/68; PULSE 84; RESP 14; TEMP 36.3; O2SAT 99; BMI 36.6
--- OUTSIDE RECORDS SUMMARY | 2024-11-26 13:00 | XMS_ITS | Clinical Summary ---
Author Organization [facility] ity Address [address] [place] [address] Care Team Providers Care Chief [employer] Name Role Phone Unavailable Primary Care Provider [...] HPV Vaccines (1 - 3-dose series) 09/06/2015 DTaP,Tdap,and Td Vaccines (1 - Tdap) 09/06/2019 Hepatitis B Vaccines (1 of 3 - 19+ 3-dose series) 09/06/2019 Cervical Cancer Screening: P ap Smear 2021 HIV Screening 02/21/2022 Hepatitis C Screening 02/21/2022 Social Influencers of Health Screening 02/21/2022 COVID-19 Vaccine (1 - 2023-2 5 season) 2023 Depression Screening 03/25/2024 Influenza Vaccine (#1) 2024 HIB Vaccines Aged Out No longer [...] patient's age to complete this topic Meningococcal B Vaccine Aged Out No l onger eligible based on patient's age to complete this topic Pneumococcal Vaccine: Pediat rics (0 to 5 Years) and At-Risk Patients (6 to 49 Years) Aged Out No longer eligible b ased on patient's age to complete this topic RSV Immunization Patients Un yogesh 20 months Aged Out No longer eligible b ased on patient's age to complete this topic Varicella Vaccines Aged Out No longer eligible based on patient's age to complete this topic
--- OUTSIDE RECORDS SUMMARY | 2024-11-26 13:00 | XMS_ITS | Clinical Summary ---
Author Organization [facility] Address [address] [place] [address] Phone Care Team Providers Care Public Information Coordinator Name Role Phone Unavailable Primary Care Provider Unavailabl e Allergies Active Allergy Reactions Criticality Noted Date Comments Diphenhydramine Hcl (Sleep) ? of facial swelling per mom Medications albuterol HFA (PROAIR HFA) 108 (90 Base) MCG/ACT inhalerIndications:Exe rcise-induced bronchoconstriction Inhale 2 puffs every 4 (four) hours as needed for wheezing. 1 Units 04/25/19 19 Active Additional Information Patient not taking.Reported on 07/17/2018 fluticasone (Flonase) 50 MCG/ACT nasal sprayIndications:Commo n cold Administer 2 sprays into each nostril daily. 1 Units 1 04/15/19 20 Active Additional Information Patient not taking.Reported on 06/18/2019 Multiple Vitamins-Minerals (MULTI COMPLETE/IRON) tabletIndications:Scre ening for iron deficiency anemia Take 1 tablet by mouth daily. 30 tablet 12 06/18/19 20 Active Additional Information Patient not taking.Reported on 11/24/2019 hydrOXYzine 10 MG tabletIndications:Anxi ety Take 1 tablet (10 mg total) by mouth nightly as needed for anxiety. 30 tablet 11/24/19 20 Active polyethylene glycol (MiraLax) 17 GM/SCOOP powderIndications:Abdo francisca cramping Take 17 g by mouth daily. Stir and dissolve powder into 4 to 8 ounces of beverage and then drink. 765 g 3 12/11/19 20 Active Active Problems Problem Noted Date Diagnosed Date 12/16/2019 Overview (05/19/2020): Due with a baby boy early August Anxiety 11/25/2019 Assessment & Plan (11/25/2019 12:26 PM EDT): Laila reports her mood has been much better, but anxiety is exacerbated by the pandemic. She plans to contact [facility] to reestablish counseling. Influenza vaccine refused 11/24/2019 Overview (11/25/2019): 11/24/19 Anemia 06/11/2017 Assessment & Plan (11/25/2019 12:24 PM EDT): Will restart iron supplement and f/u for recheck in 4 weeks. Assessment & Plan (04/25/2018 1:03 PM EST): Will restart iron supplement, also reviewed dietary sources of iron. Handout given and encouraged to consume iron-rich foods with vitamin C. Will recheck in 1 month. Dysmenorrhea 04/23/2017 Assessment & Plan (11/25/2019 12:21 PM EDT): Much improved. Not interested in control right now. Reviewed importance of always using condoms. Assessment & Plan (04/25/2018 1:04 PM EST): Much better than in the past. Vitamin D deficiency 04/23/2017 Acne vulgaris 03/22/2016 Assessment & Plan (11/25/2019 12:24 PM EDT): Rx sent for tretinoin. Reviewed use and importance of using consistently for several months. F/u if not improving. Assessment & Plan (07/17/2018 4:37 PM EDT): Will try a topical, and have Derm see if not better due to mom's insistence. BMI pediatric, greater than or equal to 95% for age 1203/22/2016 Assessment & Plan (04/25/2018 1:04 PM EST): Active with sports, continue to encourage a wide variety of fruits and vegetables in the diet. Exercise-induced bronchoconstriction 03/22/2016 Assessment & Plan (11/25/2019 12:25 PM EDT): No recent issues. Assessment & Plan (04/25/2018 1:04 PM EST): Responding well to albuterol prior to exercise. Other allergic rhinitis 03/22/2016 Resolved Problems Problem Noted Date Diagnosed Date Resolved Date Episode of recurrent major d epressive disorder 06/04/2017 11/25/2019 Assessment & Plan (04/25/2018 1:05 PM EST): Followed by therapist and med prescriber at [facility]. ZACARIAS (obstructive sleep apnea) 05/10/2017 11/25/2019 Assessment & Plan (04/25/2018 1:04 PM EST): No current issues. Acanthosis nigricans 03/22/2016 020 Immunizations Immunization Administration Dates Next Due DTaP 11/23/2005, 2,03/19/2001, 001,2000 H1N1 01/27/2009 HPV Vaccine 9 Valent 03/21/2015 HPV, Quadrivalent 05/21/2014,03/19/2014 Hep A, ped/adol 04/25/2018,04/23/2017 Hep B, ped/adol 06/05/2001,2000,2000 Hib (PRP-T) 12/19/2001, 1,01/13/2001, 001 IPV 11/23/2005, 2,01/13/2001, 001 Influenza 01/27/2007, 6,01/15/2005, 004 Influenza, injectable, quadrivalent 09/2011,02/07/2011,02/06/2010, 009,01/24/2008 MMR 11/23/2004,09/12/2001 Meningococcal Conj (Menactra) MCV4P 04/23/2017,1 05/01/2011 Pneumococcal Conjugate 11/27/2002,2000,01/13/2001, 001 Tdap 02/29/2012 Varicella 01/27/2007,12/19/2001 Family History Medical History Relation Name Comments No Known Problems Father Heart disease (Premature) Father's Sister Cervical cancer Maternal Grandmother Cervical cancer Mother Casandra Sterling No Known Problems Paternal Grandmother Relation Name Status Comments Father Alive Father's Sister Alive Maternal Grandfather Alive Unknown Maternal Grandmother Mother Casandra Sterling Alive Other Alive Siblings: Healt hy Paternal Grandfather Unknown cause of Paternal Grandmother of pneumonia Social History Tobacco Use Types Packs/Day Years Used Date Smoking Tobacco: Never Smokeless Tobacco: Never Alcohol Use Standard Drinks/Week Comments Never 0 (1 standard drink = 0.6 oz pur e alcohol) Hunger/Food Answer Date Recorded In the last 12 months, did y ou or your family ever eat less than you felt you should because there wasn't enough money for food? No 11/24/2019 Stable Housing Answer Date Recorded Are you worried that in the next 2 months you may not have stable housing? No 11/24/2019 Transportation Concerns Answer Date Rec orded In the last 12 months, have you or your family ever had to go without healthcare because you didn't have a way to get there? No 11/24/2019 Hazards in Home Answer Date Recorded Think about the place you li ve. Do you have problems with any of the following? Pests (mice or roaches), mold, no/not working smoke detectors, water leaks, no window guards. No 2019 Financing Utilities Answer Date Recorde d In the last 12 months, has t he [employer], gas, oil, or water company threatened to shut off your services in your home? No 11/24/2019 Safety at Home Answer Date Recorded Are you or your family worried about feeling saf e in your home? No 11/24/2019 Outside Support Answer Date Recorded Do you feel that you need mo re support from other people or programs to help you care for yourself or your family? No 11/24/2019 Understanding Health Concerns Answer Da te Recorded Do you need help understandi ng your or your child's healthcare needs (diagnosis, medications, plan, etc.)? No 11/24/2019 Financing Health Concerns Answer Date R ecorded In the last 12 months, was t here a time when your child needed to see a doctor or get medications or supplies but could not because of cost? No 11/24/2019 Missing School or Work Answer Date Riki rded Did you or your child miss s chool or work because of a health problem that could have been avoided? No 11/24/2019 Comments No Sex and Gender Information Value Date Recorded Sex Assigned at Not on file Legal Sex Female 6:08 PM EDT Gender Identity Not on file Sexual Orientation Not on file Last Filed Vital Signs Vital Sign Reading Time Taken Comments Blood Pressure 122/76 11/24/2019 8:58 AM EDT Pulse 82 01/15/2019 3:13 PM EDT Temperature 36.6 C (97.8 F) 12/21/2020 9:50 AM EDT Respiratory Rate - - Oxygen Saturation 99% 01/15/2019 3:13 PM EDT Inhaled Oxygen Concentration - - Weight 110 kg (242 lb 4 oz) 12/21/2020 9:50 AM E DT Height 167.6 cm (5' 6 ) 11/24/2019 8:58 AM EDT Body Mass Index 39.1 11/24/2019 8:58 AM EDT Plan of Treatment Health Maintenance Due Date Last Done Comments DTaP,Tdap,and Td Vaccines (7 - Td or Tdap) 02/28/2022 02/29/2012, 11/23/2005, 12/19/2001, Additional history exists Influenza Vaccines (#1) 2024 02/29/20, 02/07/2011, 02/06/2010, Additional history exists COVID-19 Vaccine (2 - season) 2024 03/30/2021 Hepatitis B Vaccines Completed 06/05/2001, 2000, 2000 HIB Vaccines Completed 12/19/2001, 02/23, 01/13/2001, Additional history exists Pneumococcal Vaccine Completed 11/27/2002, 03/19/2001, 01/13/2001, Additional history exists MMR Vaccines Completed 11/23/2004, 09/12/2001 IPV Vaccines Completed 11/23/2005, 05/23, 01/13/2001, Additional history exists Varicella Vaccines Completed 01/27/2007, 12/19/2001 HPV Vaccines Completed 03/21/2015, 04/26, 03/19/2014 Meningococcal Vaccine Completed 04/23/2017, 012 Hepatitis A Vaccines Completed 04/25/2018, 04/23/19 18 Men B Vaccine Aged Out No longer elig ible based on patient's age to complete this topic Procedures * Due to [place] [employer] law, this organization might not be sharing sensitive test results. Procedure Name Priority Date/Time Associated Diagnosis Comments CHLAMYDIA AND GONORRHEA, AMPLIFIED Routine 12/11/2019 12:25 PM EDT Encounter for screening examination for sexually transmitted disease from Last 3 Months or Most Recently Relevant to Health Maintenance Results * Due to [place] [employer] law, this organization might not be sharing sensitive test results. * Chlamydia and Gonorrhoea, Amplified (12/11/2019 12:25 PM EDT) Chlamydia Trachomatis, DNA Probe NOT DETECTED (NEG) [facility] Comment:Reference range: NOT DETECTED URINE GC AMP PROBE NOT DETECTED (NEG) [facility] Comment: Reference range: NOT DETECTED (NOTE) The analytical performance characteristics of this assay, when used to test SurePath(TM) specimens have been determined by [facility]. The modifications have not been cleared or approved by the FDA. This assay has been validated pursuant to the CLIA regulations and is used for clinical purposes. = For additional information, please refer to https://education.[employer]/faq/UAH656 (This link is being provided for information/ educational purposes only.) = Test Performed by: [facility], [address] [place] [address]. [id number]. Process Worker: Alexa Pruitt MD. Testing performed or reported by [facility], a Service of [facility], [address] [place] [id number] Teofilo Whelan MD, Refrigeration Plant Operator Urine (Urine) 12/11/2019 12: 25 PM EDT 12/11/2019 5:33 PM EDT Jana Jacob MD LAB MICROBIOLOGY - GENERAL OR DERABLES Final Result [facility] from Last 3 Months or Most Recently Relevant to Health Maintenance Insurance [place] [facility] NON PCC
--- OUTSIDE RECORDS SUMMARY | 2024-11-26 13:00 | XMS_ITS | Encounter Summary ---
Author Organization [facility] Address [address] [place] [address] Phone Care Team Providers Care Pulp Mixer Name Role Phone Harmony Atkins NP Primary Care Provider [phone] Encounter Details Date Type Department Care Team (Late st Contact Info) Description 08/11/2017 Conversion Encounter [facility] [address] [place] [address] Herminia Wesley MD [address] [place] [address] Social History Tobacco Use Types Packs/Day Years Used Date Smoking Tobacco: Never Assessed Comments Unknown Sex and Gender Information Value Date Recorded Sex Assigned at Not on file Legal Sex Female 6:08 PM EDT Gender Identity Not on file Sexual Orientation Not on file documented as of this encounter Plan of Treatment Not on file documented as of this encounter Visit Diagnoses Not on filedocumented in this encounter Care Teams Pulp Mixer Relationship Specialty Start Date End Date Harmony Atkins NP [address] [place] [address] PCP - General Pediatrics 03/01/20 12/25/23 documented as of this encounter
== END 2024-11-26 14:08 | disposition home or self-care (01) ==
LOC: HO.HMCFM 11:19
PROVIDERS: PCP Physician Assistant Medical; Visit Provider Physician Assistant Medical
DX: Z00.00 Encounter for general adult medical examination without abnormal findings (principal); R07.89 Other chest pain; Z68.36 Body mass index [BMI] 36.0-36.9, adult; E66.01 Morbid (severe) obesity due to excess calories; R06.09 Other forms of dyspnea; F41.9 Anxiety disorder, unspecified; F32.A Depression, unspecified; R94.31 Abnormal electrocardiogram [ECG] [EKG]; Z13.6 Encounter for screening for cardiovascular disorders; J45.990 Exercise induced bronchospasm

== ENCOUNTER → 2024-11-26 11:18 | Outpatient (BNVA) | payer OTHER, SELFPAY | PROVIDERS: PCP Physician Assistant Medical; Visit Provider Physician Assistant Medical | DX: Z00.00 Encounter for general adult medical examination without abnormal findings (principal); F41.1 Generalized anxiety disorder; F32.A Depression, unspecified; R94.31 Abnormal electrocardiogram [ECG] [EKG]; R06.09 Other forms of dyspnea; J45.990 Exercise induced bronchospasm; E66.01 Morbid (severe) obesity due to excess calories; Z68.36 Body mass index [BMI] 36.0-36.9, adult; K21.9 Gastro-esophageal reflux disease without esophagitis; Z79.899 Other long term (current) drug therapy; Z13.31 Encounter for screening for depression | CPT/HCPCS: 96127; 99212; 99395 ==